=== PATIENT | female | born 1990 | race Caucasian/White ===

== ENCOUNTER 2023-03-30 22:45 | Inpatient (IN) ==
[2023-03-30] MEDS ORDERED: LABETALOL HCL IV 5 MG/ML 20ML IV STA (23:58)
[2023-03-30] MEDS ORDERED: MAG SULFATE 4GM BOLUS FROM BAG IV ONE (23:58)
[2023-03-30] MEDS ORDERED: LIDOCAINE 1% LOCAL 20 ML VIAL INFIL PRN (23:58)
[2023-03-30] MEDS ORDERED: OXYTOCIN 30 UNITS/NSS 30 UNITS/500 ML BAG IV PRN (23:58)
[2023-03-31 00:02] LABS: Hematocrit (blood only) 33.5 % (37.0-47.0); Mean Corpuscular Hemoglobin 24.1 pg (25.0-34.0); Mean Corpuscular Hgb Conc 32.8 g/dL (32.0-36.0); Mean Corpuscular Volume 73.3 fL (80.0-100.0); Mean Platelet Volume 10.3 fL (9.4-12.4); Platelet Count 246 K/uL (130-400); RDW Coefficient of Variation 14.5 % (11.5-14.5); RDW Standard Deviation 38.3 fL (36.4-46.3); Red Blood Count 4.57 M/uL (4.20-5.40); White Blood Count 8.91 K/ul (4.8-10.8)
[2023-03-31 00:17] LABS: Albumin Level 3.1 gm/dl (3.4-5.0); BUN Creatinine Ratio 9.5 (10-20); Bilirubin,Total 0.2 mg/dl (0.2-1.0); Calcium 8.8 mg/dl (8.6-10.3); Creatinine Clr Calc Pharmacy 154.3 ml/min; Est GFR (African American) 138.5 ml/min; Est GFR (Non-African American) 119.5 ml/min; Globulin 3.2 gm/dl (2.5-4.0); Potassium 3.8 mmol/L (3.5-5.1); Total Protein 6.3 gm/dl (6.0-8.3)
[2023-03-31] MEDS: MAGNESIUM SULFATE / WTR 40 GM/1,000 ML BAG IV SCH ×2 (00:24→16:58)
[2023-03-31] MEDS: LACTATED RINGER'S 1,000 ML IV PRN ×3 (00:25→23:54)
--- NOTE | 2023-03-31 00:32 | History & Physical Report ---
Date of Service March 31, 2023 Assessment & Plan (1) Pre-eclampsia, severe: (2) Obesity affecting : (3) Hypothyroidism affecting : (4) Need for rhogam due to Rh negative mother: Plan 32 yo G1 at 37 2/7 [facility] admitted w/ new dx of pre-eclampsia w/ SF by BPs Severe range BPs - will give IV labetalol 20 Fetus cat 1 PET w/ SF - Labs wnl, UPC P. Will start mag for seizure ppx Labor - limited tolerance of exam. 35cc alvarez placed with speculum, pt tolerated well. Will start pit GBS neg Epidural prn Admission and Anticipated Discharge Date Admission Date: March 30, 2023 History of Present Illness Chief Complaint: Elevated BPs Primary Care Provider: Digna Nunez, DO 32 yo G1 at 37 2/7 [facility] presents w/ c/o of elevated BP. Dx w/ covid, s/s started on 03/24. Hd visit on 03/27 where Bp was normal. Since then covid s/s have improved. Today, noticed increase in swelling and took BP on her father in laws bp cuff and it was in the 160s so she called and was recommended for eval. +FM; denies ctx, LOF, VB. Denies KESSLER, vision change, CP, SOB, RUQ/epigastric pain. PNI: PCOS BMI >35 Hypothyroid alpha thal carrier Rh neg Past [employer] Hx: G1 pcos denies hx stis Allergies Allergy/AdvReac Type Severity Reaction Status Date / Time No Known Allergies Allergy Verified 03/27/23 16:08 Home Medications Medication Instructions Recorded Confirmed Type docosahexaenoic acid 200 mg 1 mg PO DAILY 01/31/22 03/30/23 History capsule ( DHA) loratadine 10 mg tablet (Claritin) 10 mg PO DAILY 01/31/22 03/30/23 History omeprazole 20 mg capsule,delayed 20 mg PO DAILY 01/31/22 03/30/23 History release levothyroxine 50 mcg tablet 50 mcg PO DAILY #120 tabs 01/10/23 03/30/23 Rx Patient History Medical History (Updated 03/31/23 @ 00:30 by Bethany Chin MD) Hypothyroidism affecting Hypothyroidism affecting in first trimester Abnormal thyroid blood test ASCUS with positive high risk HPV cervical Eczema Chicken pox Surgical History S/P tonsillectomy S/P cholecystectomy Family History Aunt Breast cancer Grandfather (Paternal) Colorectal cancer Father Diabetes Sister Gestational diabetes Other Hypercholesteremia Hypertension Kidney stone Ovarian cyst PCOS (polycystic ovarian syndrome) Thyroid disease Denies family history of Ovarian cancer Social History Smoking Status: Never smoker Do You Dip or Chew Tobacco: No; Hx Alcohol Use: No Hx Substance Use: No Preferred Language: Arabic marital status: marital status details: John Holder (33) [phone] Current Living Situation: Spouse Current Living Situation Comment: lives with spouse, 2 dogs current occupational status: 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 Physical Exam Genitourinary: OB Exam Abdomen: + vertex (confirmed by bsus) Manual OB Exam: + cervical dilation fingertip, + cervical effacement 50% and + station -2 OB Exam Monitor Tracing: + external FHT monitor used, + external uterine monitor used and + category I Results & Data Vital Signs (Past 12 Hours) Vital Signs Temp Pulse Resp BP 03/31/23 00:23 96 H 171/87 H 03/31/23 00:14 96 H 171/87 H 03/30/23 23:58 90 184/91 H 03/30/23 23:34 91 H 176/97 H 03/30/23 23:18 92 H 178/91 H 03/30/23 23:08 99.0 F 18 Laboratory Results OB Labs: Blood Type B Negative 09/06/22 Antibody Screen NEGATIVE 01/25/23 Hemoglobin 11.0 g/dl (12.0-16.0) L 01/25/23 Hematocrit 33.9 % (37.0-47.0) L 01/25/23 Mean Corpuscular Volume 77.0 fL (80.0-100.0) L 09/06/22 Platelet Count 346 K/uL (130-400) 09/06/22 Rubella IgG Antibody Immune (Immune) 09/06/22 Rapid Plasma Reagin Nonreactive (Nonreactive) 09/06/22 Hepatitis B Surface Antigen. NON-REACTIVE (NON-REACTIVE) 09/06/22 Hepatitis C Antibody (EIA) NON-REACTIVE (NON-REACTIVE) 09/06/22 HIV (1&2) Ag and Ab Confirmation NON-REACTIVE (NON-REACTIVE) 09/06/22 Glucose 1 Hour 50 gm Load 166 mg/dl (70-130) H 01/25/23 OB Optional Labs: Chlamydia trachomatis RNA Not Detected (NotDetected) 09/06/22 Neisseria gonorrhoeae RNA Not Detected (NotDetected) 09/06/22 Thyroid Stimulating Hormone (TSH) 2.254 uIu/ml (0.300-4.500) 03/13/23 Labs Reviewed: Horizon 14-silent carrier alpha thalassemia; declines fob testing--mln cfdna-low risk--mln GBS neg Diagnostic Findings 02/26 EEFW 55%, ant plac Coding Level of Care Code None Diagnoses Pre-eclampsia, severe O14.10 Obesity affecting O99.210 Hypothyroidism affecting in third trimester O99.283; E03.9 Trimester: third trimester Need for rhogam due to Rh negative mother Z29.13 (3) Hypothyroidism affecting Trimester: third trimester Qualified Code(s): O99.283 - Endocrine, nutritional and metabolic diseases complicating , third trimester; E03.9 - Hypothyroidism, unspecified
[2023-03-31] MEDS ORDERED: OXYTOCIN 30 UNITS/NSS 30 UNITS/500 ML BAG IV PRN (00:57)
[2023-03-31 01:54] LABS: Creatinine Urine Random 140.3 mg/dl; Protein Creatinine Ratio Urine 1.5 (0-0.2)
[2023-03-31] MEDS ORDERED: LABETALOL HCL IV 5 MG/ML 20ML IV STA ×2 (02:33→08:07)
[2023-03-31] MEDS: LABETALOL HCL 200 MG TAB PO SCH ×2 (09:25→21:36)
[2023-03-31] MEDS ORDERED: fentaNYL citrate PF 100 MCG/2 ML VIAL ONE (11:34)
[2023-03-31] MEDS ORDERED: fentANYL 2 MCG/ML BUPIVacaine 0.125%-NSS 100ML BAG ONE (11:34)
[2023-03-31] MEDS ORDERED: BUPIVACAINE 0.25% PF 30 ML VIAL ONE (11:34)
[2023-03-31] MEDS ORDERED: ePHEDrine sulfate 50 MG/ML AMP ONE (11:34)
[2023-03-31] MEDS ORDERED: LIDOCAINE 2%/EPINEPHRINE 1:200,000 20 ML PF ONE (11:34)
[2023-03-31] MEDS ORDERED: SODIUM CHLORIDE 0.9% PF INJ 10 ML VIAL ONE (11:34)
[2023-03-31] MEDS ORDERED: ePHEDrine sulfate 50 MG/ML AMP IV PRN ×2 (13:39→13:40)
[2023-03-31] MEDS ORDERED: fentaNYL citrate PF 100 MCG/2 ML VIAL IV PRN (13:39)
[2023-03-31] MEDS ORDERED: PROMETHAZINE HCL 6.25 MG in SODIUM CHLORIDE 0.9% 50 ML IV PRN (13:39)
[2023-03-31] MEDS ORDERED: ONDANSETRON INJ 2 MG/ML 2 ML VIAL IV PRN ×2 (13:39→13:40)
[2023-03-31] MEDS ORDERED: ATROPINE SULFATE 0.1 MG/ML 10ML SYR IV PRN (13:39)
[2023-03-31] MEDS ORDERED: BUPIVACAINE 0.25% PF 30 ML VIAL EPI STA (13:40)
[2023-03-31] MEDS ORDERED: SODIUM CHLORIDE 0.9% PF INJ 10 ML VIAL EPI STA (13:40)
[2023-03-31] MEDS ORDERED: NALOXONE HCL 1 MG in SODIUM CHLORIDE 0.9% 1,000 ML IV PRN (13:40)
[2023-03-31] MEDS ORDERED: NALBUPHINE HCL 5 MG in SYRINGE 0 ML IV PRN (13:40)
[2023-03-31] MEDS ORDERED: diphenhydrAMINE 50 MG/ML VIAL IV PRN (13:40)
[2023-03-31] MEDS ORDERED: fentaNYL citrate PF 100 MCG/2 ML VIAL EPI PRN (13:40)
[2023-03-31] MEDS ORDERED: ROPIVACAINE 0.5% PF 5 MG/ML 20 ML VIAL EPI PRN (13:40)
[2023-03-31] MEDS ORDERED: fentaNYL citrate PF 100 MCG/2 ML VIAL EPI STA (13:40)
[2023-03-31] MEDS ORDERED: SODIUM CHLORIDE 0.9% PF INJ 10 ML VIAL EPI PRN (13:40)
[2023-03-31] MEDS ORDERED: LIDOCAINE 2% MPF LOCAL 5 ML VIAL EPI PRN (13:40)
[2023-03-31] MEDS ORDERED: LIDOCAINE 2%/EPINEPHRINE 1:200,000 20 ML PF EPI STA (13:40)
[2023-03-31] MEDS ORDERED: BUPIVACAINE 0.25% PF 30 ML VIAL EPI PRN (13:40)
[2023-03-31] MEDS ORDERED: NALOXONE HCL 0.4 MG/1 ML VIAL/CARP IV PRN (13:40)
--- NOTE | 2023-03-31 13:40 | Anesthesiology Consultation ---
Date of Service March 31, 2023 Assessment & Plan Chart Review Chart Review: Patient NOT seen in Pre Admission Testing and Acceptable Risk for Labor Epidural Consults Requested none ASA ASA2 Proposed Anesthesia Anesthesia Type: Labor Epidural Risk / Benefits Reviewed With: PT / POA / Parent / Guardian, Accepts Plan and Informed Consent Obtained History Height/Weight Height: 5 ft 5 in Weight: 103.419 kg Allergies Allergy/AdvReac Type Severity Reaction Status Date / Time No Known Allergies Allergy Verified 03/27/23 16:08 Medications Home Medications Medication Instructions Recorded Confirmed Last Taken docosahexaenoic acid 200 mg 1 mg PO DAILY 01/31/22 03/30/23 03/30/23 capsule ( DHA) loratadine 10 mg tablet (Claritin) 10 mg PO DAILY 01/31/22 03/30/23 03/30/23 omeprazole 20 mg capsule,delayed 20 mg PO DAILY 01/31/22 03/30/23 03/30/23 release levothyroxine 50 mcg tablet 50 mcg PO DAILY #120 tabs 01/10/23 03/30/23 03/30/23 Active Medications Generic Name Dose Route Start Last Admin Trade Name Freq PRN Reason Stop Dose Admin Lactated Ringer's 1,000 mls @ 125 mls/hr 03/30/23 23:58 03/31/23 11:28 Lr IV 04/01/23 23:57 75 mls/hr .Q8H PRN Administration L&D Protocol Protocol Magnesium Sulfate 40 gm in 1,000 mls @ 50 mls/hr 03/30/23 23:45 03/31/23 07:03 Magnesium Sulfate / Wtr IV 04/29/23 23:44 2 gm/hr .Q20H EDWIN 50 mls/hr Infusion 2 GM/HR Oxytocin 30 units in 500 mls @ 14 mls/hr 03/31/23 00:57 03/31/23 07:03 Pitocin 30 Units/Nss IV 04/02/23 00:56 0.84 units/hr .Q24H PRN 14 mls/hr Labor Induction/Augmentation Titration Protocol 0.84 UNITS/HR Labetalol HCl 200 mg 03/31/23 09:00 03/31/23 09:25 Labetalol Hcl 200 Mg Tab PO 04/30/23 08:59 200 mg BID EDWIN Administration Past Medical History Medical History (Updated 03/31/23 @ 00:30 by Bethany Chin MD) Hypothyroidism affecting Hypothyroidism affecting in first trimester Abnormal thyroid blood test ASCUS with positive high risk HPV cervical Eczema Chicken pox Exercise / Class Metabolic Activity II 4-5 Yardwork/Stairs/Walk up hill Past Family History Family History Aunt Breast cancer Grandfather (Paternal) Colorectal cancer Father Diabetes Sister Gestational diabetes Other Hypercholesteremia Hypertension Kidney stone Ovarian cyst PCOS (polycystic ovarian syndrome) Thyroid disease Denies family history of Ovarian cancer Past Surgical History Surgical History S/P tonsillectomy S/P cholecystectomy Past Anesthesia History No Hx of Anesthesia Complications and No Family Hx of Anesthesia Complications History of PONV No Hx of PONV and No Hx of Motion Sickness Social History Smoking Status: Never smoker Do You Dip or Chew Tobacco: No Hx Alcohol Use: No Hx Substance Use: No Physical Exam Vital Signs Last Vital Signs Temp 36.8 C 03/31/23 12:25 Pulse 84 03/31/23 13:34 Resp 18 03/31/23 13:30 BP 113/56 L 03/31/23 13:31 Pulse Ox 96 03/31/23 13:34 ENMT Mouth: no dentition abnormality Thyromental Distance: > or= 3.5 Finger Breadths Mallampati Class: II Neck normal visual inspection Respiratory normal respiratory effort Auscultation: lungs clear to auscultation bilaterally Cardiovascular Rate/Rhythm: regular rate and regular rhythm Psychiatric Orientation: alert Testing Laboratory Results 03/30/23 23:44 03/30/23 23:44 Blood Type B Negative 03/30/23 23:39 Antibody Screen NEGATIVE 03/30/23 23:39
--- NOTE | 2023-03-31 14:32 | Labor Progress Brief Note ---
Date of Service March 31, 2023 Subjective comfortable w/ epidural Assessment & Plan (1) Pre-eclampsia, severe: (2) Obesity affecting : (3) Hypothyroidism affecting : Trimester: third trimester Qualified Code(s): O99.283 - Endocrine, nutritional and metabolic diseases complicating , third trimester; E03.9 - Hypothyroidism, unspecified (4) Need for rhogam due to Rh negative mother: Plan 32 yo G1 at 37 2/7 [facility] admitted w/ new dx of pre-eclampsia w/ SF by BPs Severe range BPs - will give IV labetalol 20 Fetus cat 1 PET w/ SF - Labs wnl, UPC 1.5. on mag, alvarez in place. received iv labetalol and started onoral lab 200 bid. bp improved w/ epidural, willl monitor Labor - alvarez fell out earlier, received epidurall so could tolerate exam better and now s/p arom. cont induction GBS neg Epidural in place Admission and Anticipated Discharge Date Admission Date: March 30, 2023 Physical Exam Genitourinary: Manual OB Exam: + cervical dilation 4 cm, + cervical effacement 50%, + station -2 and + amniotic fluid (arom clear) OB Exam Monitor Tracing: + external FHT monitor used, + external uterine monitor used (q4-5) and + category I (120/mod/+accel/-decel) Results & Data Vital Signs (Past 12 Hours) Vital Signs Temp Pulse Resp BP Pulse Ox 03/31/23 14:24 96 03/31/23 14:24 92 H 03/31/23 14:19 97 03/31/23 14:19 87 03/31/23 14:15 92 03/31/23 14:15 95 H 03/31/23 14:14 98 03/31/23 14:14 87 03/31/23 14:09 98 03/31/23 14:09 92 H 03/31/23 14:04 97 03/31/23 14:04 89 03/31/23 14:02 88 03/31/23 14:02 125/59 L 03/31/23 13:59 96 03/31/23 13:59 87 03/31/23 13:55 94 03/31/23 13:55 83 03/31/23 13:54 98 03/31/23 13:54 85 03/31/23 13:49 97 03/31/23 13:49 84 03/31/23 13:48 85 03/31/23 13:48 122/61 03/31/23 13:46 94 03/31/23 13:46 88 03/31/23 13:44 96 03/31/23 13:44 85 03/31/23 13:40 94 03/31/23 13:40 88 03/31/23 13:39 94 03/31/23 13:39 85 03/31/23 13:34 96 03/31/23 13:34 84 03/31/23 13:31 80 03/31/23 13:31 113/56 L 03/31/23 13:30 18 03/31/23 13:30 18 03/31/23 13:29 98 03/31/23 13:29 85 03/31/23 13:24 97 03/31/23 13:24 82 03/31/23 13:19 99 03/31/23 13:19 85 03/31/23 13:17 93 03/31/23 13:17 94 H 03/31/23 13:16 84 03/31/23 13:16 112/57 L 03/31/23 13:14 98 03/31/23 13:14 92 H 03/31/23 13:14 109/59 L 03/31/23 13:12 85 03/31/23 13:12 118/60 03/31/23 13:10 86 03/31/23 13:10 110/55 L 03/31/23 13:09 95 03/31/23 13:09 87 03/31/23 13:08 94 03/31/23 13:08 91 H 03/31/23 13:08 113/57 L 03/31/23 13:06 86 03/31/23 13:06 109/57 L 03/31/23 13:04 96 03/31/23 13:04 87 03/31/23 13:04 102/55 L 03/31/23 13:03 93 03/31/23 13:03 85 03/31/23 13:02 87 03/31/23 13:02 96/53 L 03/31/23 13:00 16 03/31/23 13:00 16 03/31/23 13:00 86 03/31/23 13:00 109/58 L 03/31/23 12:59 96 03/31/23 12:59 85 03/31/23 12:59 85 03/31/23 12:59 115/58 L 03/31/23 12:54 94 03/31/23 12:54 84 03/31/23 12:49 98 03/31/23 12:49 86 03/31/23 12:44 98 03/31/23 12:44 86 03/31/23 12:39 99 03/31/23 12:39 97 H 03/31/23 12:34 99 03/31/23 12:34 95 H 03/31/23 12:29 16 03/31/23 12:29 16 03/31/23 12:29 97 03/31/23 12:29 96 H 03/31/23 12:29 98 H 03/31/23 12:29 145/73 H 03/31/23 12:27 91 H 03/31/23 12:27 145/76 H 03/31/23 12:25 16 03/31/23 12:25 16 03/31/23 12:25 16 03/31/23 12:25 98.2 F 16 03/31/23 12:24 98 03/31/23 12:24 97 H 03/31/23 12:19 97 03/31/23 12:19 95 H 03/31/23 12:17 94 03/31/23 12:17 100 H 03/31/23 12:17 145/71 H 03/31/23 12:14 100 03/31/23 12:14 99 H 03/31/23 12:09 97 03/31/23 12:09 105 H 03/31/23 12:04 97 03/31/23 12:04 97 H 03/31/23 12:02 94 H 03/31/23 12:02 142/78 H 03/31/23 11:59 97 03/31/23 11:59 97 H 03/31/23 11:54 96 03/31/23 11:54 96 H 03/31/23 11:49 97 03/31/23 11:49 93 H 03/31/23 11:48 98 H 03/31/23 11:48 142/84 H 03/31/23 11:44 97 03/31/23 11:44 99 H 03/31/23 11:39 96 03/31/23 11:39 96 H 03/31/23 11:34 98 03/31/23 11:34 92 H 03/31/23 11:32 93 H 03/31/23 11:32 152/81 H 03/31/23 11:29 98 03/31/23 11:29 95 H 03/31/23 11:24 97 03/31/23 11:24 97 H 03/31/23 11:19 98 03/31/23 11:19 97 H 03/31/23 11:18 99 H 03/31/23 11:18 166/87 H 03/31/23 11:14 98 03/31/23 11:14 95 H 03/31/23 11:09 98 03/31/23 11:09 100 H 03/31/23 11:04 97 03/31/23 11:04 102 H 03/31/23 11:00 16 03/31/23 10:59 97 03/31/23 10:59 95 H 03/31/23 10:54 98 03/31/23 10:54 96 H 03/31/23 10:49 98 03/31/23 10:49 94 H 03/31/23 10:48 93 H 03/31/23 10:48 146/80 H 03/31/23 10:44 96 03/31/23 10:44 98 H 03/31/23 10:43 92 03/31/23 10:43 93 H 03/31/23 10:39 96 03/31/23 10:39 93 H 03/31/23 10:36 94 03/31/23 10:36 95 H 03/31/23 10:34 97 03/31/23 10:34 91 H 03/31/23 10:33 91 H 03/31/23 10:33 148/78 H 03/31/23 10:30 94 03/31/23 10:30 94 H 03/31/23 10:29 96 03/31/23 10:29 87 03/31/23 10:24 96 03/31/23 10:24 95 H 03/31/23 10:20 93 03/31/23 10:20 100 H 03/31/23 10:19 96 03/31/23 10:19 93 H 03/31/23 10:19 93 H 03/31/23 10:19 145/83 H 03/31/23 10:14 97 03/31/23 10:14 94 H 03/31/23 10:09 98 03/31/23 10:09 95 H 03/31/23 10:05 92 H 03/31/23 10:05 168/85 H 03/31/23 09:48 86 03/31/23 09:48 161/86 H 03/31/23 09:33 92 H 03/31/23 09:33 156/82 H 03/31/23 09:18 91 H 03/31/23 09:18 145/80 H 03/31/23 09:00 16 03/31/23 08:48 90 03/31/23 08:48 137/76 03/31/23 08:33 91 H 03/31/23 08:33 136/76 03/31/23 08:15 95 H 03/31/23 08:15 177/105 H 03/31/23 08:12 88 167/85 H 03/31/23 07:59 88 03/31/23 07:59 167/85 H 03/31/23 07:45 97 H 03/31/23 07:45 160/84 H 03/31/23 07:29 92 H 03/31/23 07:29 154/87 H 03/31/23 07:14 92 H 03/31/23 07:14 158/95 H 03/31/23 07:00 97.5 F L 16 03/31/23 07:00 16 03/31/23 06:59 97 H 03/31/23 06:59 142/92 H 03/31/23 06:44 92 H 03/31/23 06:44 150/72 H 03/31/23 06:32 99 H 03/31/23 06:32 158/79 H 03/31/23 06:15 93 H 03/31/23 06:15 157/85 H 03/31/23 06:00 18 03/31/23 06:00 90 03/31/23 06:00 153/83 H 03/31/23 05:44 91 H 03/31/23 05:44 152/82 H 03/31/23 05:30 18 03/31/23 05:30 93 H 03/31/23 05:30 146/86 H 03/31/23 05:14 96 H 03/31/23 05:14 143/75 H 03/31/23 04:59 90 03/31/23 04:59 150/78 H 03/31/23 04:45 97 H 03/31/23 04:45 159/87 H 03/31/23 04:30 18 03/31/23 04:29 88 03/31/23 04:29 154/83 H 03/31/23 04:15 88 03/31/23 04:15 157/80 H 03/31/23 04:01 90 03/31/23 04:01 164/81 H 03/31/23 03:44 96 H 03/31/23 03:44 161/88 H 03/31/23 03:30 18 03/31/23 03:30 90 03/31/23 03:30 156/79 H 03/31/23 03:17 98.6 F 03/31/23 03:15 18 03/31/23 03:14 97 H 03/31/23 03:14 154/78 H 03/31/23 03:00 18 03/31/23 02:59 90 03/31/23 02:59 156/78 H 03/31/23 02:44 94 H 03/31/23 02:44 159/82 H 03/31/23 02:36 93 H 03/31/23 02:36 160/78 H 03/31/23 02:31 96 H 03/31/23 02:31 167/79 H Coding Level of Care Code None Diagnoses Pre-eclampsia, severe O14.10 Obesity affecting O99.210 Hypothyroidism affecting in third trimester O99.283; E03.9 Trimester: third trimester Need for rhogam due to Rh negative mother Z29.13
[2023-03-31] MEDS: ACETAMINOPHEN 500 MG TAB PO PRN (16:35)
--- NOTE | 2023-03-31 18:09 | Labor Progress Brief Note ---
Date of Service March 31, 2023 Subjective comfortable w/ epidural Assessment & Plan (1) Pre-eclampsia, severe: (2) Obesity affecting : (3) Hypothyroidism affecting : Trimester: third trimester Qualified Code(s): O99.283 - Endocrine, nutritional and metabolic diseases complicating , third trimester; E03.9 - Hypothyroidism, unspecified (4) Need for rhogam due to Rh negative mother: Plan 32 yo G1 at 37 2/7 [facility] admitted w/ new dx of pre-eclampsia w/ SF by BPs BPs normal to mild range Fetus cat 1 PET w/ SF - Labs wnl, UPC 1.5. on mag, alvarez in place. received iv labetalol and started onoral lab 200 bid. bp improved w/ epidural, willl monitor Labor - pit at 24, some progress in station. Will give pit break and restart GBS neg Epidural in place Admission and Anticipated Discharge Date Admission Date: March 30, 2023 Physical Exam Genitourinary: Manual OB Exam: + cervical dilation 4 cm, + cervical effacement 50% and + station -2 OB Exam Monitor Tracing: + external FHT monitor used, + external uterine monitor used (q4-5) and + category I (120/mod/+accel/-decel) Results & Data Vital Signs (Past 12 Hours) Vital Signs Temp Pulse Resp BP Pulse Ox 03/31/23 18:04 90 03/31/23 18:04 98 H 03/31/23 18:03 92 H 03/31/23 18:03 157/90 H 03/31/23 18:00 16 03/31/23 18:00 16 03/31/23 17:59 98 03/31/23 17:59 92 H 03/31/23 17:54 96 03/31/23 17:54 86 03/31/23 17:49 98 03/31/23 17:49 91 H 03/31/23 17:47 88 03/31/23 17:47 139/76 03/31/23 17:44 98 03/31/23 17:44 87 03/31/23 17:39 99 03/31/23 17:39 88 03/31/23 17:34 99 03/31/23 17:34 84 03/31/23 17:32 83 03/31/23 17:32 143/82 H 03/31/23 17:30 16 03/31/23 17:30 16 03/31/23 17:29 100 03/31/23 17:29 97 H 03/31/23 17:24 97 03/31/23 17:24 91 H 03/31/23 17:19 98 03/31/23 17:19 90 03/31/23 17:17 90 03/31/23 17:17 143/84 H 03/31/23 17:15 93 03/31/23 17:15 101 H 03/31/23 17:14 97 03/31/23 17:14 96 H 03/31/23 17:09 98 03/31/23 17:09 91 H 03/31/23 17:04 98 03/31/23 17:04 85 03/31/23 17:01 89 03/31/23 17:01 135/65 03/31/23 17:00 18 03/31/23 17:00 18 03/31/23 16:59 97 03/31/23 16:59 94 H 03/31/23 16:54 98 03/31/23 16:54 91 H 03/31/23 16:49 96 03/31/23 16:49 89 03/31/23 16:47 87 03/31/23 16:47 127/62 03/31/23 16:44 96 03/31/23 16:44 89 03/31/23 16:39 95 03/31/23 16:39 86 03/31/23 16:34 96 03/31/23 16:34 96 H 03/31/23 16:31 89 03/31/23 16:31 124/61 03/31/23 16:30 16 03/31/23 16:30 16 03/31/23 16:29 95 03/31/23 16:29 88 03/31/23 16:28 93 03/31/23 16:28 95 H 03/31/23 16:24 96 03/31/23 16:24 87 03/31/23 16:20 97.9 F 03/31/23 16:19 97 03/31/23 16:19 86 03/31/23 16:16 86 03/31/23 16:16 129/68 03/31/23 16:14 88 L 03/31/23 16:14 101 H 03/31/23 16:14 82 L 03/31/23 16:14 99 H 03/31/23 16:09 97 03/31/23 16:09 90 03/31/23 16:04 97 03/31/23 16:04 86 03/31/23 16:02 87 03/31/23 16:02 131/69 03/31/23 16:00 16 03/31/23 16:00 16 03/31/23 15:59 96 03/31/23 15:59 84 03/31/23 15:54 96 03/31/23 15:54 95 H 03/31/23 15:49 97 03/31/23 15:49 89 03/31/23 15:48 86 03/31/23 15:48 131/68 03/31/23 15:44 96 03/31/23 15:44 91 H 03/31/23 15:39 96 03/31/23 15:39 97 H 03/31/23 15:34 96 03/31/23 15:34 87 03/31/23 15:33 93 H 03/31/23 15:33 137/75 03/31/23 15:30 16 03/31/23 15:30 16 03/31/23 15:29 96 03/31/23 15:29 92 H 03/31/23 15:24 96 03/31/23 15:24 98 H 03/31/23 15:19 96 03/31/23 15:19 91 H 03/31/23 15:17 92 H 03/31/23 15:17 133/69 03/31/23 15:14 96 03/31/23 15:14 93 H 03/31/23 15:12 94 03/31/23 15:12 87 03/31/23 15:09 95 03/31/23 15:09 92 H 03/31/23 15:04 95 03/31/23 15:04 85 03/31/23 15:00 16 03/31/23 15:00 16 03/31/23 15:00 94 03/31/23 15:00 86 03/31/23 14:59 96 03/31/23 14:59 91 H 03/31/23 14:54 95 03/31/23 14:54 89 03/31/23 14:49 96 03/31/23 14:49 91 H 03/31/23 14:44 97 03/31/23 14:44 90 03/31/23 14:39 96 03/31/23 14:39 91 H 03/31/23 14:34 96 03/31/23 14:34 94 H 03/31/23 14:30 16 03/31/23 14:30 16 03/31/23 14:29 97 03/31/23 14:29 92 H 03/31/23 14:24 96 03/31/23 14:24 92 H 03/31/23 14:21 97.9 F 03/31/23 14:19 97 03/31/23 14:19 87 03/31/23 14:15 92 03/31/23 14:15 95 H 03/31/23 14:14 98 03/31/23 14:14 87 03/31/23 14:09 98 03/31/23 14:09 92 H 03/31/23 14:04 97 03/31/23 14:04 89 03/31/23 14:02 88 03/31/23 14:02 125/59 L 03/31/23 13:59 96 03/31/23 13:59 87 03/31/23 13:55 94 03/31/23 13:55 83 03/31/23 13:54 98 03/31/23 13:54 85 03/31/23 13:49 97 03/31/23 13:49 84 03/31/23 13:48 85 03/31/23 13:48 122/61 03/31/23 13:46 94 03/31/23 13:46 88 03/31/23 13:44 96 03/31/23 13:44 85 03/31/23 13:40 94 03/31/23 13:40 88 03/31/23 13:39 94 03/31/23 13:39 85 03/31/23 13:34 96 03/31/23 13:34 84 03/31/23 13:31 80 03/31/23 13:31 113/56 L 03/31/23 13:30 18 03/31/23 13:30 18 03/31/23 13:29 98 03/31/23 13:29 85 03/31/23 13:24 97 03/31/23 13:24 82 03/31/23 13:19 99 03/31/23 13:19 85 03/31/23 13:17 93 03/31/23 13:17 94 H 03/31/23 13:16 84 03/31/23 13:16 112/57 L 03/31/23 13:14 98 03/31/23 13:14 92 H 03/31/23 13:14 109/59 L 03/31/23 13:12 85 03/31/23 13:12 118/60 03/31/23 13:10 86 03/31/23 13:10 110/55 L 03/31/23 13:09 95 03/31/23 13:09 87 03/31/23 13:08 94 03/31/23 13:08 91 H 03/31/23 13:08 113/57 L 03/31/23 13:06 86 03/31/23 13:06 109/57 L 03/31/23 13:04 96 03/31/23 13:04 87 03/31/23 13:04 102/55 L 03/31/23 13:03 93 03/31/23 13:03 85 03/31/23 13:02 87 03/31/23 13:02 96/53 L 03/31/23 13:00 16 03/31/23 13:00 16 03/31/23 13:00 86 03/31/23 13:00 109/58 L 03/31/23 12:59 96 03/31/23 12:59 85 03/31/23 12:59 85 03/31/23 12:59 115/58 L 03/31/23 12:54 94 03/31/23 12:54 84 03/31/23 12:49 98 03/31/23 12:49 86 03/31/23 12:44 98 03/31/23 12:44 86 03/31/23 12:39 99 03/31/23 12:39 97 H 03/31/23 12:34 99 03/31/23 12:34 95 H 03/31/23 12:29 16 03/31/23 12:29 16 03/31/23 12:29 97 03/31/23 12:29 96 H 03/31/23 12:29 98 H 03/31/23 12:29 145/73 H 03/31/23 12:27 91 H 03/31/23 12:27 145/76 H 03/31/23 12:25 16 03/31/23 12:25 16 03/31/23 12:25 16 03/31/23 12:25 98.2 F 16 03/31/23 12:24 98 03/31/23 12:24 97 H 03/31/23 12:19 97 03/31/23 12:19 95 H 03/31/23 12:17 94 03/31/23 12:17 100 H 03/31/23 12:17 145/71 H 03/31/23 12:14 100 03/31/23 12:14 99 H 03/31/23 12:09 97 03/31/23 12:09 105 H 03/31/23 12:04 97 03/31/23 12:04 97 H 03/31/23 12:02 94 H 03/31/23 12:02 142/78 H 03/31/23 11:59 97 03/31/23 11:59 97 H 03/31/23 11:54 96 03/31/23 11:54 96 H 03/31/23 11:49 97 03/31/23 11:49 93 H 03/31/23 11:48 98 H 03/31/23 11:48 142/84 H 03/31/23 11:44 97 03/31/23 11:44 99 H 03/31/23 11:39 96 03/31/23 11:39 96 H 03/31/23 11:34 98 03/31/23 11:34 92 H 03/31/23 11:32 93 H 03/31/23 11:32 152/81 H 03/31/23 11:29 98 03/31/23 11:29 95 H 03/31/23 11:24 97 03/31/23 11:24 97 H 03/31/23 11:19 98 03/31/23 11:19 97 H 03/31/23 11:18 99 H 03/31/23 11:18 166/87 H 03/31/23 11:14 98 03/31/23 11:14 95 H 03/31/23 11:09 98 03/31/23 11:09 100 H 03/31/23 11:04 97 03/31/23 11:04 102 H 03/31/23 11:00 16 03/31/23 10:59 97 03/31/23 10:59 95 H 03/31/23 10:54 98 03/31/23 10:54 96 H 03/31/23 10:49 98 03/31/23 10:49 94 H 03/31/23 10:48 93 H 03/31/23 10:48 146/80 H 03/31/23 10:44 96 03/31/23 10:44 98 H 03/31/23 10:43 92 03/31/23 10:43 93 H 03/31/23 10:39 96 03/31/23 10:39 93 H 03/31/23 10:36 94 03/31/23 10:36 95 H 03/31/23 10:34 97 03/31/23 10:34 91 H 03/31/23 10:33 91 H 03/31/23 10:33 148/78 H 03/31/23 10:30 94 03/31/23 10:30 94 H 03/31/23 10:29 96 03/31/23 10:29 87 03/31/23 10:24 96 03/31/23 10:24 95 H 03/31/23 10:20 93 03/31/23 10:20 100 H 03/31/23 10:19 96 03/31/23 10:19 93 H 03/31/23 10:19 93 H 03/31/23 10:19 145/83 H 03/31/23 10:14 97 03/31/23 10:14 94 H 03/31/23 10:09 98 03/31/23 10:09 95 H 03/31/23 10:05 92 H 03/31/23 10:05 168/85 H 03/31/23 09:48 86 03/31/23 09:48 161/86 H 03/31/23 09:33 92 H 03/31/23 09:33 156/82 H 03/31/23 09:18 91 H 03/31/23 09:18 145/80 H 03/31/23 09:00 16 03/31/23 08:48 90 03/31/23 08:48 137/76 03/31/23 08:33 91 H 03/31/23 08:33 136/76 03/31/23 08:15 95 H 03/31/23 08:15 177/105 H 03/31/23 08:12 88 167/85 H 03/31/23 07:59 88 03/31/23 07:59 167/85 H 03/31/23 07:45 97 H 03/31/23 07:45 160/84 H 03/31/23 07:29 92 H 03/31/23 07:29 154/87 H 03/31/23 07:14 92 H 03/31/23 07:14 158/95 H 03/31/23 07:00 97.5 F L 16 03/31/23 07:00 16 03/31/23 06:59 97 H 03/31/23 06:59 142/92 H 03/31/23 06:44 92 H 03/31/23 06:44 150/72 H 03/31/23 06:32 99 H 03/31/23 06:32 158/79 H 03/31/23 06:15 93 H 03/31/23 06:15 157/85 H Coding Level of Care Code None Diagnoses Pre-eclampsia, severe O14.10 Obesity affecting O99.210 Hypothyroidism affecting in third trimester O99.283; E03.9 Trimester: third trimester Need for rhogam due to Rh negative mother Z29.13
[2023-03-31] MEDS ORDERED: METOCLOPRAMIDE HCL INJ 5 MG/ML 2 ML VIAL IV STA (19:38)
[2023-03-31] MEDS: fentANYL 2 MCG/ML BUPIVacaine 0.125%-NSS 100ML BAG EPI PRN (20:00)
--- NOTE | 2023-04-01 00:01 | Labor Progress Brief Note ---
Date of Service March 31, 2023 Subjective comfortable w/ epidural, getting tired Assessment & Plan (1) Pre-eclampsia, severe: (2) Obesity affecting : (3) Hypothyroidism affecting : Trimester: third trimester Qualified Code(s): O99.283 - Endocrine, nutritional and metabolic diseases complicating , third trimester; E03.9 - Hypothyroidism, unspecified (4) Need for rhogam due to Rh negative mother: Plan 32 yo G1 at 37 2/7 [facility] admitted w/ new dx of pre-eclampsia w/ SF by BPs BPs normal to mild range Fetus cat 1 PET w/ SF - Labs wnl, UPC 1.5. on mag, alvarez in place. s/p iv labetalol x 2 and started on oral lab 200 bid. Labor - pit increased to 16, IUPC placed. Pt getting physically and mentally tired by the whole process. Discussed continued induction vs CS, risks and benefits. She would like to see if IUPC helps make change at all, but if still about the same, may desire to proceed with CS at next check GBS neg Epidural in place Admission and Anticipated Discharge Date Admission Date: March 30, 2023 Physical Exam Genitourinary: Manual OB Exam: + cervical dilation 5 cm, + cervical effacement 70% and + station -2 OB Exam Monitor Tracing: + intra-uterine pressure catheter used (placed, q4) and + category I (120/mod/+accel/-decel) Results & Data Vital Signs (Past 12 Hours) Vital Signs Temp Pulse Resp BP Pulse Ox 03/31/23 23:47 93 H 03/31/23 23:47 150/83 H 03/31/23 23:32 93 H 03/31/23 23:32 135/71 03/31/23 23:17 86 03/31/23 23:17 126/64 03/31/23 23:02 87 03/31/23 23:02 127/72 03/31/23 22:47 96 H 03/31/23 22:47 133/85 03/31/23 22:40 18 03/31/23 22:40 98.2 F 18 03/31/23 22:32 98 H 03/31/23 22:32 135/69 03/31/23 22:17 98 H 03/31/23 22:17 118/57 L 03/31/23 22:02 90 03/31/23 22:02 124/58 L 03/31/23 21:47 88 03/31/23 21:47 122/59 L 03/31/23 21:32 89 03/31/23 21:32 122/57 L 03/31/23 21:18 84 03/31/23 21:18 129/64 03/31/23 21:05 18 03/31/23 21:02 90 03/31/23 21:02 127/75 03/31/23 20:52 18 03/31/23 20:52 98.4 F 18 03/31/23 20:47 87 03/31/23 20:47 141/73 H 03/31/23 20:31 95 H 03/31/23 20:31 150/76 H 03/31/23 20:17 101 H 03/31/23 20:17 146/74 H 03/31/23 20:01 86 03/31/23 20:01 141/75 H 03/31/23 19:48 90 03/31/23 19:48 140/77 03/31/23 19:32 83 03/31/23 19:32 137/69 03/31/23 19:19 97 03/31/23 19:19 96 H 03/31/23 19:17 85 03/31/23 19:17 137/73 03/31/23 19:14 98 03/31/23 19:14 89 03/31/23 19:10 18 03/31/23 19:10 97.9 F 18 03/31/23 19:09 98 03/31/23 19:09 100 H 03/31/23 19:08 84 L 03/31/23 19:08 103 H 03/31/23 19:04 96 03/31/23 19:04 98 H 03/31/23 19:01 90 03/31/23 19:01 122/60 03/31/23 18:59 95 03/31/23 18:59 97 H 03/31/23 18:54 96 03/31/23 18:54 92 H 03/31/23 18:54 93 03/31/23 18:54 96 H 03/31/23 18:49 96 03/31/23 18:49 88 03/31/23 18:47 88 03/31/23 18:47 126/63 12/31/23 18:44 96 03/31/23 18:44 97 H 03/31/23 18:39 96 03/31/23 18:39 96 H 03/31/23 18:34 96 03/31/23 18:34 90 03/31/23 18:32 90 03/31/23 18:32 124/61 03/31/23 18:30 16 03/31/23 18:30 16 03/31/23 18:29 96 03/31/23 18:29 91 H 03/31/23 18:24 96 03/31/23 18:24 91 H 03/31/23 18:20 97.9 F 03/31/23 18:19 97 03/31/23 18:19 87 03/31/23 18:17 89 03/31/23 18:17 133/67 03/31/23 18:14 98 03/31/23 18:14 95 H 03/31/23 18:09 99 03/31/23 18:09 83 03/31/23 18:04 90 03/31/23 18:04 98 H 03/31/23 18:03 92 H 03/31/23 18:03 157/90 H 03/31/23 18:00 16 03/31/23 18:00 16 03/31/23 17:59 98 03/31/23 17:59 92 H 03/31/23 17:54 96 03/31/23 17:54 86 03/31/23 17:49 98 03/31/23 17:49 91 H 03/31/23 17:47 88 03/31/23 17:47 139/76 03/31/23 17:44 98 03/31/23 17:44 87 03/31/23 17:39 99 03/31/23 17:39 88 03/31/23 17:34 99 03/31/23 17:34 84 03/31/23 17:32 83 03/31/23 17:32 143/82 H 03/31/23 17:30 16 03/31/23 17:30 16 03/31/23 17:29 100 03/31/23 17:29 97 H 03/31/23 17:24 97 03/31/23 17:24 91 H 03/31/23 17:19 98 03/31/23 17:19 90 03/31/23 17:17 90 03/31/23 17:17 143/84 H 03/31/23 17:15 93 03/31/23 17:15 101 H 03/31/23 17:14 97 03/31/23 17:14 96 H 03/31/23 17:09 98 03/31/23 17:09 91 H 03/31/23 17:04 98 03/31/23 17:04 85 03/31/23 17:01 89 03/31/23 17:01 135/65 03/31/23 17:00 16 03/31/23 17:00 18 03/31/23 17:00 18 03/31/23 16:59 97 03/31/23 16:59 94 H 03/31/23 16:54 98 03/31/23 16:54 91 H 03/31/23 16:49 96 03/31/23 16:49 89 03/31/23 16:47 87 03/31/23 16:47 127/62 03/31/23 16:44 96 03/31/23 16:44 89 03/31/23 16:39 95 03/31/23 16:39 86 03/31/23 16:34 96 03/31/23 16:34 96 H 03/31/23 16:31 89 03/31/23 16:31 124/61 03/31/23 16:30 16 03/31/23 16:30 16 03/31/23 16:29 95 03/31/23 16:29 88 03/31/23 16:28 93 03/31/23 16:28 95 H 03/31/23 16:24 96 03/31/23 16:24 87 03/31/23 16:20 97.9 F 03/31/23 16:19 97 03/31/23 16:19 86 03/31/23 16:16 86 03/31/23 16:16 129/68 03/31/23 16:14 88 L 03/31/23 16:14 101 H 03/31/23 16:14 82 L 03/31/23 16:14 99 H 03/31/23 16:09 97 03/31/23 16:09 90 03/31/23 16:04 97 03/31/23 16:04 86 03/31/23 16:02 87 03/31/23 16:02 131/69 03/31/23 16:00 16 03/31/23 16:00 16 03/31/23 15:59 96 03/31/23 15:59 84 03/31/23 15:54 96 03/31/23 15:54 95 H 03/31/23 15:49 97 03/31/23 15:49 89 03/31/23 15:48 86 03/31/23 15:48 131/68 03/31/23 15:44 96 03/31/23 15:44 91 H 03/31/23 15:39 96 03/31/23 15:39 97 H 03/31/23 15:34 96 03/31/23 15:34 87 03/31/23 15:33 93 H 03/31/23 15:33 137/75 03/31/23 15:30 16 03/31/23 15:30 16 03/31/23 15:29 96 03/31/23 15:29 92 H 03/31/23 15:24 96 03/31/23 15:24 98 H 03/31/23 15:19 96 03/31/23 15:19 91 H 03/31/23 15:17 92 H 03/31/23 15:17 133/69 03/31/23 15:14 96 03/31/23 15:14 93 H 03/31/23 15:12 94 03/31/23 15:12 87 03/31/23 15:09 95 03/31/23 15:09 92 H 03/31/23 15:04 95 03/31/23 15:04 85 03/31/23 15:00 16 03/31/23 15:00 16 03/31/23 15:00 16 03/31/23 15:00 94 03/31/23 15:00 86 03/31/23 14:59 96 03/31/23 14:59 91 H 03/31/23 14:54 95 03/31/23 14:54 89 03/31/23 14:49 96 03/31/23 14:49 91 H 03/31/23 14:44 97 03/31/23 14:44 90 03/31/23 14:39 96 03/31/23 14:39 91 H 03/31/23 14:34 96 03/31/23 14:34 94 H 03/31/23 14:30 16 03/31/23 14:30 16 03/31/23 14:29 97 03/31/23 14:29 92 H 03/31/23 14:24 96 03/31/23 14:24 92 H 03/31/23 14:21 97.9 F 03/31/23 14:19 97 03/31/23 14:19 87 03/31/23 14:15 92 03/31/23 14:15 95 H 03/31/23 14:14 98 03/31/23 14:14 87 03/31/23 14:09 98 03/31/23 14:09 92 H 03/31/23 14:04 97 03/31/23 14:04 89 03/31/23 14:02 88 03/31/23 14:02 125/59 L 03/31/23 13:59 96 03/31/23 13:59 87 03/31/23 13:55 94 03/31/23 13:55 83 03/31/23 13:54 98 03/31/23 13:54 85 03/31/23 13:49 97 03/31/23 13:49 84 03/31/23 13:48 85 03/31/23 13:48 122/61 03/31/23 13:46 94 03/31/23 13:46 88 03/31/23 13:44 96 03/31/23 13:44 85 03/31/23 13:40 94 03/31/23 13:40 88 03/31/23 13:39 94 03/31/23 13:39 85 03/31/23 13:34 96 03/31/23 13:34 84 03/31/23 13:31 80 03/31/23 13:31 113/56 L 03/31/23 13:30 18 03/31/23 13:30 18 03/31/23 13:29 98 03/31/23 13:29 85 03/31/23 13:24 97 03/31/23 13:24 82 03/31/23 13:19 99 03/31/23 13:19 85 03/31/23 13:17 93 03/31/23 13:17 94 H 03/31/23 13:16 84 03/31/23 13:16 112/57 L 03/31/23 13:14 98 03/31/23 13:14 92 H 03/31/23 13:14 109/59 L 03/31/23 13:12 85 03/31/23 13:12 118/60 03/31/23 13:10 86 03/31/23 13:10 110/55 L 03/31/23 13:09 95 03/31/23 13:09 87 03/31/23 13:08 94 03/31/23 13:08 91 H 03/31/23 13:08 113/57 L 03/31/23 13:06 86 03/31/23 13:06 109/57 L 03/31/23 13:04 96 03/31/23 13:04 87 03/31/23 13:04 102/55 L 03/31/23 13:03 93 03/31/23 13:03 85 03/31/23 13:02 87 03/31/23 13:02 96/53 L 03/31/23 13:00 16 03/31/23 13:00 16 03/31/23 13:00 16 03/31/23 13:00 86 03/31/23 13:00 109/58 L 03/31/23 12:59 96 03/31/23 12:59 85 03/31/23 12:59 85 03/31/23 12:59 115/58 L 03/31/23 12:54 94 03/31/23 12:54 84 03/31/23 12:49 98 03/31/23 12:49 86 03/31/23 12:44 98 03/31/23 12:44 86 03/31/23 12:39 99 03/31/23 12:39 97 H 03/31/23 12:34 99 03/31/23 12:34 95 H 03/31/23 12:29 16 03/31/23 12:29 16 03/31/23 12:29 97 03/31/23 12:29 96 H 03/31/23 12:29 98 H 03/31/23 12:29 145/73 H 03/31/23 12:27 91 H 03/31/23 12:27 145/76 H 03/31/23 12:25 16 03/31/23 12:25 16 03/31/23 12:25 16 03/31/23 12:25 98.2 F 16 03/31/23 12:24 98 03/31/23 12:24 97 H 03/31/23 12:19 97 03/31/23 12:19 95 H 03/31/23 12:17 94 03/31/23 12:17 100 H 03/31/23 12:17 145/71 H 03/31/23 12:14 100 03/31/23 12:14 99 H 03/31/23 12:09 97 03/31/23 12:09 105 H 03/31/23 12:04 97 03/31/23 12:04 97 H 03/31/23 12:02 94 H 03/31/23 12:02 142/78 H 03/31/23 11:59 97 03/31/23 11:59 97 H Coding Level of Care Code None Diagnoses Pre-eclampsia, severe O14.10 Obesity affecting O99.210 Hypothyroidism affecting in third trimester O99.283; E03.9 Trimester: third trimester Need for rhogam due to Rh negative mother Z29.13
[2023-04-01] MEDS: ACETAMINOPHEN 500 MG TAB PO PRN (01:28)
[2023-04-01] MEDS: fentANYL 2 MCG/ML BUPIVacaine 0.125%-NSS 100ML BAG EPI PRN (01:36)
[2023-04-01] MEDS ORDERED: SODIUM CHLORIDE 0.9% 250 ML IV PRN ×2 (04:24→11:14)
--- NOTE | 2023-04-01 04:44 | Labor Progress Brief Note ---
Date of Service April 01, 2023 Subjective comfortable w/ epidural, tired Assessment & Plan (1) Pre-eclampsia, severe: (2) Obesity affecting : (3) Hypothyroidism affecting : Trimester: third trimester Qualified Code(s): O99.283 - Endocrine, nutritional and metabolic diseases complicating , third trimester; E03.9 - Hypothyroidism, unspecified (4) Need for rhogam due to Rh negative mother: Plan 32 yo G1 at 37 2/7 [facility] admitted w/ new dx of pre-eclampsia w/ SF by BPs BPs normal to mild range Fetus cat 1 PET w/ SF - Labs wnl, UPC 1.5. on mag, alvarez in place. s/p iv labetalol x 2 and started on oral lab 200 bid. Labor - pit a 24, periods of adequacy but not much change noted. has been 12+ hrs since rom and significant change not noted. She was counseled regarding options and desires to proceed with CS. Discussed indications, risks, benefits, alternatives with risks including infection, bleeding, injury to adjacent structures (bowel, bladder, ureters, blood vessels, nerves, baby), possible need for blood transfusion and/or life saving hysterectomy, VTE. Consent reviewed in detail w/ pt and signed after all questions answered to her satisfaction. Plan for T&C, ancef and azithro. Anesthesia and peds made aware GBS neg Epidural in place Admission and Anticipated Discharge Date Admission Date: March 30, 2023 Physical Exam Genitourinary: Manual OB Exam: + cervical dilation 5 cm, + cervical effacement 70%, + station -2 and + amniotic fluid (arom clear) OB Exam Monitor Tracing: + external FHT monitor used, + intra-uterine pressure catheter used and + category I (120/mod/+accel/-decel) Results & Data Vital Signs (Past 12 Hours) Vital Signs Temp Pulse Resp BP Pulse Ox 04/01/23 04:33 106 H 186/85 H 04/01/23 04:18 111 H 131/63 04/01/23 04:02 110 H 152/81 H 04/01/23 03:56 18 04/01/23 03:56 18 04/01/23 03:56 99.7 F H 18 04/01/23 03:48 100 H 144/74 H 04/01/23 03:32 109 H 140/75 04/01/23 03:17 99 H 140/71 04/01/23 03:02 107 H 144/75 H 04/01/23 02:47 104 H 140/74 04/01/23 02:32 106 H 127/58 L 04/01/23 02:17 104 H 129/62 04/01/23 02:03 102 H 132/57 L 04/01/23 01:47 100 H 134/63 04/01/23 01:32 105 H 123/61 04/01/23 01:20 18 04/01/23 01:20 98.2 F 18 04/01/23 01:19 18 04/01/23 01:17 104 H 156/71 H 04/01/23 01:02 99 H 152/77 H 04/01/23 00:49 96 H 157/81 H 04/01/23 00:32 97 H 156/74 H 04/01/23 00:17 104 H 151/72 H 04/01/23 00:02 96 H 163/77 H 03/31/23 23:47 93 H 03/31/23 23:47 150/83 H 03/31/23 23:32 93 H 03/31/23 23:32 135/71 03/31/23 23:17 86 03/31/23 23:17 126/64 03/31/23 23:02 87 03/31/23 23:02 127/72 03/31/23 22:47 96 H 03/31/23 22:47 133/85 03/31/23 22:40 18 03/31/23 22:40 98.2 F 18 03/31/23 22:32 98 H 03/31/23 22:32 135/69 03/31/23 22:17 98 H 03/31/23 22:17 118/57 L 03/31/23 22:02 90 03/31/23 22:02 124/58 L 03/31/23 21:47 88 03/31/23 21:47 122/59 L 03/31/23 21:32 89 03/31/23 21:32 122/57 L 03/31/23 21:18 84 03/31/23 21:18 129/64 03/31/23 21:05 18 03/31/23 21:02 90 03/31/23 21:02 127/75 03/31/23 20:52 18 03/31/23 20:52 98.4 F 18 03/31/23 20:47 87 03/31/23 20:47 141/73 H 03/31/23 20:31 95 H 03/31/23 20:31 150/76 H 03/31/23 20:17 101 H 03/31/23 20:17 146/74 H 03/31/23 20:01 86 03/31/23 20:01 141/75 H 03/31/23 19:48 90 03/31/23 19:48 140/77 03/31/23 19:32 83 03/31/23 19:32 137/69 03/31/23 19:19 97 03/31/23 19:19 96 H 03/31/23 19:17 85 03/31/23 19:17 137/73 03/31/23 19:14 98 03/31/23 19:14 89 03/31/23 19:10 18 03/31/23 19:10 97.9 F 18 03/31/23 19:09 98 03/31/23 19:09 100 H 03/31/23 19:08 84 L 03/31/23 19:08 103 H 03/31/23 19:04 96 03/31/23 19:04 98 H 03/31/23 19:01 90 03/31/23 19:01 122/60 03/31/23 18:59 95 03/31/23 18:59 97 H 03/31/23 18:54 96 03/31/23 18:54 92 H 03/31/23 18:54 93 03/31/23 18:54 96 H 03/31/23 18:49 96 03/31/23 18:49 88 03/31/23 18:47 88 03/31/23 18:47 126/63 03/31/23 18:44 96 03/31/23 18:44 97 H 03/31/23 18:39 96 03/31/23 18:39 96 H 03/31/23 18:34 96 03/31/23 18:34 90 03/31/23 18:32 90 03/31/23 18:32 124/61 03/31/23 18:30 16 03/31/23 18:30 16 03/31/23 18:29 96 03/31/23 18:29 91 H 03/31/23 18:24 96 03/31/23 18:24 91 H 03/31/23 18:20 97.9 F 03/31/23 18:19 97 03/31/23 18:19 87 03/31/23 18:17 89 03/31/23 18:17 133/67 03/31/23 18:14 98 03/31/23 18:14 95 H 03/31/23 18:09 99 03/31/23 18:09 83 03/31/23 18:04 90 03/31/23 18:04 98 H 03/31/23 18:03 92 H 03/31/23 18:03 157/90 H 03/31/23 18:00 16 03/31/23 18:00 16 03/31/23 17:59 98 03/31/23 17:59 92 H 03/31/23 17:54 96 03/31/23 17:54 86 03/31/23 17:49 98 03/31/23 17:49 91 H 03/31/23 17:47 88 03/31/23 17:47 139/76 03/31/23 17:44 98 03/31/23 17:44 87 03/31/23 17:39 99 03/31/23 17:39 88 03/31/23 17:34 99 03/31/23 17:34 84 03/31/23 17:32 83 03/31/23 17:32 143/82 H 03/31/23 17:30 16 03/31/23 17:30 16 03/31/23 17:29 100 03/31/23 17:29 97 H 03/31/23 17:24 97 03/31/23 17:24 91 H 03/31/23 17:19 98 03/31/23 17:19 90 03/31/23 17:17 90 03/31/23 17:17 143/84 H 03/31/23 17:15 93 03/31/23 17:15 101 H 03/31/23 17:14 97 03/31/23 17:14 96 H 03/31/23 17:09 98 03/31/23 17:09 91 H 03/31/23 17:04 98 03/31/23 17:04 85 03/31/23 17:01 89 03/31/23 17:01 135/65 03/31/23 17:00 16 03/31/23 17:00 18 03/31/23 17:00 18 03/31/23 16:59 97 03/31/23 16:59 94 H 03/31/23 16:54 98 03/31/23 16:54 91 H 03/31/23 16:49 96 03/31/23 16:49 89 03/31/23 16:47 87 03/31/23 16:47 127/62 03/31/23 16:44 96 03/31/23 16:44 89 03/31/23 16:39 95 03/31/23 16:39 86 Coding Level of Care Code None Diagnoses Pre-eclampsia, severe O14.10 Obesity affecting O99.210 Hypothyroidism affecting in third trimester O99.283; E03.9 Trimester: third trimester Need for rhogam due to Rh negative mother Z29.13
[2023-04-01] MEDS ORDERED: MoRPHine SULFATE PF 1 MG/ML 10 ML AMP/VIAL ONE (05:02)
[2023-04-01] MEDS ORDERED: fentaNYL citrate PF 100 MCG/2 ML VIAL ONE ×2 (05:02→06:11)
[2023-04-01] MEDS ORDERED: METHYLERGONOVINE MALEATE 0.2 MG/ML AMP ONE (05:08)
[2023-04-01] MEDS ORDERED: CARBOPROST TROMETHAMINE 250 MCG/ML AMPUL ONE ×2 (05:08→07:10)
[2023-04-01] MEDS ORDERED: diphenhydrAMINE 50 MG/ML VIAL IV PRN ×3 (05:21→23:22)
[2023-04-01] MEDS ORDERED: NALOXONE HCL 1 MG in SODIUM CHLORIDE 0.9% 1,000 ML IV PRN (05:21)
[2023-04-01] MEDS ORDERED: ONDANSETRON INJ 2 MG/ML 2 ML VIAL IV PRN ×3 (05:21→23:22)
[2023-04-01] MEDS ORDERED: NALBUPHINE HCL 5 MG in SYRINGE 0 ML IV PRN (05:21)
[2023-04-01] MEDS ORDERED: NALOXONE HCL 0.4 MG/1 ML VIAL/CARP IV PRN (05:21)
[2023-04-01] MEDS ORDERED: NALOXONE HCL 0.08 MG in SYRINGE 1.8 ML IV PRN (05:21)
[2023-04-01] MEDS ORDERED: LACTATED RINGER'S 500 ML IV PRN (05:21)
[2023-04-01] MEDS ORDERED: ePHEDrine sulfate 50 MG/ML AMP IV PRN (05:21)
[2023-04-01] MEDS ORDERED: MoRPHine SULFATE PF 1 MG/ML 10 ML AMP/VIAL EPI ONE (05:21)
[2023-04-01] MEDS ORDERED: NO NARCOTICS OR SEDATIVES SCH (05:30)
[2023-04-01] MEDS ORDERED: SODIUM CHLORIDE 0.9% 1,000 ML IV SCH (05:30)
[2023-04-01] MEDS ORDERED: DC INTRASPINAL MORPHINE SCH (05:30)
[2023-04-01] MEDS ORDERED: CITRIC ACID/SODIUM CITRATE 15 ML UDC PO SCH (06:00)
[2023-04-01] MEDS ORDERED: AZITHROMYCIN 500 MG in DEXTROSE 5% 250 ML IV SCH (06:00)
--- NOTE | 2023-04-01 07:07 | Operative Report ---
PG Post Operative Report Pre & Post Diagnosis Operation Date: 04/01/23 05:30 Pre-Op Diagnosis: 1. Single intrauterine at 37 3/7 wga 2. Pre-eclampsia with severe features 3. Failed IOL 4. Hypothyroid 5. COVID+ Post-Op Diagnosis: 1. Single intrauterine at 37 3/7 wga 2. Pre-eclampsia with severe features 3. Failed IOL 4. Hypothyroid 5. COVID+ 6. Delivery of live male child at 0609 I identified the patient and participated in the time-out.: Yes Procedure Operation Date: 04/01/23 05:30 Actual Procedures p Primary Low Transverse Section in OR - Bethany Chin MD Surgeon Bethany Chin MD [employer]ist MD Brian Estimated Blood Loss 800 Findings Consistent with Post-Op Diagnosis Normal appearing uterus, bilateral fallopian tubes and ovaries. Viable male infant with APGARs of 9 and 9 Fluids 800cc crystalloid, UOP 50cc Specimens Placenta Drains Alvarez draining clear urine Anesthesia Type L&D Only Epidural Exists Complications none Disposition Accompanied Patient To Recovery: Yes Disposition: L&D Indications 32 yo G1 at 37 3/7 wga presented one day ago with complaints of elevated BP at home and swelling. On arrival, she was noted to have severe range BPs requiring anti-hypertensive medication and was diagnosed with pre-eclampsia with severe features. Labs were obtained and demonstrated a UP:C of 1.5. Induction was begun with alvarez bulb and pitocin. Following alvarez bulb expulsion, pitocin was titrated up and she underwent arom. BPs remained mild range but intermittently severe so labetalol 200mg PO BID was started. Pitocin got to 24 without much change so pit break was given. Pit was restarated and got to 24 with periods of adequacy but cervix did not progress beyond 5cm. She was counseled regarding options and opted to proceed with above procedure Description of Procedure The patient was taken to the operating room after consents were ensured. The patient was properly identified. Epidural anesthesia was bolused without difficulty. The patient was placed in a dorsal supine position with left lateral tilt, then prepped and draped in normal sterile fashion. Surgical time out was performed. Antibiotics were given for prophylaxis. Anesthesia was tested to ensure adequate surgical levels. Pfannenstiel skin incision was performed and carried down to the underlying fascia with a knife. The fascia was then nicked in the midline and extended laterally with pickclarissa and Mcgill scissors. Superior portion of the fascia was grasped with Kochers x2 and elevated off the underlying rectus muscles using blunt dissection. Inferior portion of the fascia was then grasped with Aden clamps x2 and also elevated off the underlying muscles with blunt dissection. Midline was identified. The peritoneum was then entered and extended to provide adequate room for delivery of baby. A hand was inserted into the abdomen, uterus was noted to be clear of adhesions. Bladder blade was inserted, bladder flap was created in the usual fashion. A low transverse uterine incision was made in the uterus and extended bluntly in a superior to inferior fashion. Clear fluid noted at the time of rupture. head was grasped and elevated through the hysterotomy in an atraumatic fashion. The baby delivered in VERN position, no nuchal cord. Remainder of the body delivered without incident. Nose and mouth were bulb suctioned on the surgical field. The cord was double clamped and cut, baby was handed off to awaiting pediatrics staff. Cord segment and blood were obtained. Placenta was then expressed from the uterus. The uterus was exteriorized. Several passes were made inside the uterus to remove the remaining membranes. Attention was then turned to the hysterotomy, which was then closed with a running locked suture of 0 Vicryl on a CTX needle. Mild uterine atony was noted and hemabate given. An imbricating layer was then performed using 0-Monocryl. With initial closure layer, a hematoma was noted at left aspect of the hysterotomy. With imbricating layer, hematoma was noted to decrease in size and remain stable. There was noted to be good hemostasis. The posterior cul-de-sac was then inspected and cleaned of clot and debris. The hysterotomy was again inspected and noted to be hemostatic. The uterus was returned to the abdomen. The right and left pericolic gutters were cleaned of all clot and debris. The hysterotomy was again noted to be hemostatic. Space of Retzius was noted to be hemostatic. The fascia was then closed with a running suture of 0 Vicryl on a CT1 needle. Subcutaneous tissue was copiously irrigated and noted to be hemostatic. Subcutaneous tissue was re-approximated using 2-0 plain gut. The skin was then closed with a running suture of 3-0 Monocryl in a subcuticular fashion. At termination of the procedure, fundal pressure was applied and a moderate amount of lochia was expressed. Pressure dressing was applied to the patient. She tolerated the procedure well. All sponge, needle, instrument counts were correct x 2. I attest to the content of the Intraoperative Record and any orders documented therein. Any exceptions are noted below. OB Procedure Charges 69561
[2023-04-01] MEDS ORDERED: CHLOROPROCAINE HCL 3% 20 ML VIAL ONE (07:09)
[2023-04-01] MEDS ORDERED: LIDOCAINE 2%/EPINEPHRINE 1:200,000 20 ML PF ONE (07:09)
[2023-04-01] MEDS ORDERED: OXYTOCIN 10 UNITS/ML VIAL ONE (07:09)
--- NOTE | 2023-04-01 07:22 | Anesthesia Procedure Note ---
Date of Service April 01, 2023 Anesthesia Post Epidural Note Vital Signs Vital Signs: Temp Pulse Resp BP Pulse Ox 37.6 C H 107 H 18 94/44 L 96 04/01/23 03:56 04/01/23 07:16 04/01/23 05:30 04/01/23 07:14 04/01/23 07:16 Notes Mental Status: alert / awake / arousable and participated in evaluation Nausea / Vomiting: adequately controlled Pain: adequately controlled Airway Patency, RR, SpO2: stable & adequate BP & HR: stable & adequate Hydration State: stable & adequate Neuraxial Anesthesia: was administered and sensory block resolved Anesthetic Complications: no major complications apparent and Pt Satisfied with anesthetic care Epidural: Removed without complications and With tip intact
--- NOTE | 2023-04-01 07:22 | Anesthesiology Progress Note ---
Date of Service April 01, 2023 Anesthesia Post Procedure Vital Signs Vital Signs: Temp Pulse Resp BP Pulse Ox 04/01/23 07:16 107 H 96 04/01/23 07:14 108 H 94/44 L 04/01/23 07:11 106 H 97 04/01/23 07:07 102 H 93 04/01/23 07:06 102 H 96 04/01/23 07:04 103 H 104/51 L 04/01/23 05:30 18 04/01/23 05:17 108 H 195/89 H 04/01/23 05:02 102 H 187/87 H 04/01/23 04:47 109 H 193/88 H 04/01/23 04:33 106 H 186/85 H 04/01/23 04:18 111 H 131/63 04/01/23 04:02 110 H 152/81 H 04/01/23 03:56 18 04/01/23 03:56 18 04/01/23 03:56 37.6 C H 18 04/01/23 03:48 100 H 144/74 H 04/01/23 03:32 109 H 140/75 04/01/23 03:17 99 H 140/71 04/01/23 03:02 107 H 144/75 H 04/01/23 02:47 104 H 140/74 04/01/23 02:32 106 H 127/58 L 04/01/23 02:17 104 H 129/62 04/01/23 02:03 102 H 132/57 L 04/01/23 01:47 100 H 134/63 04/01/23 01:32 105 H 123/61 04/01/23 01:20 18 04/01/23 01:20 36.8 C 18 04/01/23 01:19 18 04/01/23 01:17 104 H 156/71 H 04/01/23 01:02 99 H 152/77 H 04/01/23 00:49 96 H 157/81 H 04/01/23 00:32 97 H 156/74 H 04/01/23 00:17 104 H 151/72 H 04/01/23 00:02 96 H 163/77 H 03/31/23 23:47 93 H 03/31/23 23:47 150/83 H 03/31/23 23:32 93 H 03/31/23 23:32 135/71 03/31/23 23:17 86 03/31/23 23:17 126/64 03/31/23 23:02 87 03/31/23 23:02 127/72 03/31/23 22:47 96 H 03/31/23 22:47 133/85 03/31/23 22:40 18 03/31/23 22:40 36.8 C 18 03/31/23 22:32 98 H 03/31/23 22:32 135/69 03/31/23 22:17 98 H 03/31/23 22:17 118/57 L 03/31/23 22:02 90 03/31/23 22:02 124/58 L 03/31/23 21:47 88 03/31/23 21:47 122/59 L 03/31/23 21:32 89 03/31/23 21:32 122/57 L 03/31/23 21:18 84 03/31/23 21:18 129/64 03/31/23 21:05 18 03/31/23 21:02 90 03/31/23 21:02 127/75 03/31/23 20:52 18 03/31/23 20:52 36.9 C 18 03/31/23 20:47 87 03/31/23 20:47 141/73 H 03/31/23 20:31 95 H 03/31/23 20:31 150/76 H 03/31/23 20:17 101 H 03/31/23 20:17 146/74 H 03/31/23 20:01 86 03/31/23 20:01 141/75 H 03/31/23 19:48 90 03/31/23 19:48 140/77 03/31/23 19:32 83 03/31/23 19:32 137/69 03/31/23 19:19 97 03/31/23 19:19 96 H 03/31/23 19:17 85 03/31/23 19:17 137/73 03/31/23 19:14 98 03/31/23 19:14 89 03/31/23 19:10 18 03/31/23 19:10 36.6 C 18 03/31/23 19:09 98 03/31/23 19:09 100 H 03/31/23 19:08 84 L 03/31/23 19:08 103 H 03/31/23 19:04 96 03/31/23 19:04 98 H 03/31/23 19:01 90 03/31/23 19:01 122/60 03/31/23 18:59 95 03/31/23 18:59 97 H 03/31/23 18:54 96 03/31/23 18:54 92 H 03/31/23 18:54 93 03/31/23 18:54 96 H 03/31/23 18:49 96 03/31/23 18:49 88 03/31/23 18:47 88 03/31/23 18:47 126/63 03/31/23 18:44 96 03/31/23 18:44 97 H 03/31/23 18:39 96 03/31/23 18:39 96 H 03/31/23 18:34 96 03/31/23 18:34 90 03/31/23 18:32 90 03/31/23 18:32 124/61 03/31/23 18:30 16 03/31/23 18:30 16 03/31/23 18:29 96 03/31/23 18:29 91 H 03/31/23 18:24 96 03/31/23 18:24 91 H 03/31/23 18:20 36.6 C 03/31/23 18:19 97 03/31/23 18:19 87 03/31/23 18:17 89 03/31/23 18:17 133/67 03/31/23 18:14 98 03/31/23 18:14 95 H 03/31/23 18:09 99 03/31/23 18:09 83 03/31/23 18:04 90 03/31/23 18:04 98 H 03/31/23 18:03 92 H 03/31/23 18:03 157/90 H 03/31/23 18:00 16 03/31/23 18:00 16 03/31/23 17:59 98 03/31/23 17:59 92 H 03/31/23 17:54 96 03/31/23 17:54 86 03/31/23 17:49 98 03/31/23 17:49 91 H 03/31/23 17:47 88 03/31/23 17:47 139/76 03/31/23 17:44 98 03/31/23 17:44 87 03/31/23 17:39 99 03/31/23 17:39 88 03/31/23 17:34 99 03/31/23 17:34 84 03/31/23 17:32 83 03/31/23 17:32 143/82 H 03/31/23 17:30 16 03/31/23 17:30 16 03/31/23 17:29 100 03/31/23 17:29 97 H 03/31/23 17:24 97 03/31/23 17:24 91 H 03/31/23 17:19 98 03/31/23 17:19 90 03/31/23 17:17 90 03/31/23 17:17 143/84 H 03/31/23 17:15 93 03/31/23 17:15 101 H 03/31/23 17:14 97 03/31/23 17:14 96 H 03/31/23 17:09 98 03/31/23 17:09 91 H 03/31/23 17:04 98 03/31/23 17:04 85 03/31/23 17:01 89 03/31/23 17:01 135/65 03/31/23 17:00 16 03/31/23 17:00 18 03/31/23 17:00 18 03/31/23 16:59 97 03/31/23 16:59 94 H 03/31/23 16:54 98 03/31/23 16:54 91 H 03/31/23 16:49 96 03/31/23 16:49 89 03/31/23 16:47 87 03/31/23 16:47 127/62 03/31/23 16:44 96 03/31/23 16:44 89 03/31/23 16:39 95 03/31/23 16:39 86 03/31/23 16:34 96 03/31/23 16:34 96 H 03/31/23 16:31 89 03/31/23 16:31 124/61 03/31/23 16:30 16 03/31/23 16:30 16 03/31/23 16:29 95 03/31/23 16:29 88 03/31/23 16:28 93 03/31/23 16:28 95 H 03/31/23 16:24 96 03/31/23 16:24 87 03/31/23 16:20 36.6 C 03/31/23 16:19 97 03/31/23 16:19 86 03/31/23 16:16 86 03/31/23 16:16 129/68 03/31/23 16:14 88 L 03/31/23 16:14 101 H 03/31/23 16:14 82 L 03/31/23 16:14 99 H 03/31/23 16:09 97 03/31/23 16:09 90 03/31/23 16:04 97 03/31/23 16:04 86 03/31/23 16:02 87 03/31/23 16:02 131/69 03/31/23 16:00 16 03/31/23 16:00 16 03/31/23 15:59 96 03/31/23 15:59 84 03/31/23 15:54 96 03/31/23 15:54 95 H 03/31/23 15:49 97 03/31/23 15:49 89 03/31/23 15:48 86 03/31/23 15:48 131/68 03/31/23 15:44 96 03/31/23 15:44 91 H 03/31/23 15:39 96 03/31/23 15:39 97 H 03/31/23 15:34 96 03/31/23 15:34 87 03/31/23 15:33 93 H 03/31/23 15:33 137/75 03/31/23 15:30 16 03/31/23 15:30 16 03/31/23 15:29 96 03/31/23 15:29 92 H 03/31/23 15:24 96 03/31/23 15:24 98 H 03/31/23 15:19 96 03/31/23 15:19 91 H 03/31/23 15:17 92 H 03/31/23 15:17 133/69 03/31/23 15:14 96 03/31/23 15:14 93 H 03/31/23 15:12 94 03/31/23 15:12 87 03/31/23 15:09 95 03/31/23 15:09 92 H 03/31/23 15:04 95 03/31/23 15:04 85 03/31/23 15:00 16 03/31/23 15:00 16 03/31/23 15:00 16 03/31/23 15:00 94 03/31/23 15:00 86 03/31/23 14:59 96 03/31/23 14:59 91 H 03/31/23 14:54 95 03/31/23 14:54 89 03/31/23 14:49 96 03/31/23 14:49 91 H 03/31/23 14:44 97 03/31/23 14:44 90 03/31/23 14:39 96 03/31/23 14:39 91 H 03/31/23 14:34 96 03/31/23 14:34 94 H 03/31/23 14:30 16 03/31/23 14:30 16 03/31/23 14:29 97 03/31/23 14:29 92 H 03/31/23 14:24 96 03/31/23 14:24 92 H 03/31/23 14:21 36.6 C 03/31/23 14:19 97 03/31/23 14:19 87 03/31/23 14:15 92 03/31/23 14:15 95 H 03/31/23 14:14 98 03/31/23 14:14 87 03/31/23 14:09 98 03/31/23 14:09 92 H 03/31/23 14:04 97 03/31/23 14:04 89 03/31/23 14:02 88 03/31/23 14:02 125/59 L 03/31/23 13:59 96 03/31/23 13:59 87 03/31/23 13:55 94 03/31/23 13:55 83 03/31/23 13:54 98 03/31/23 13:54 85 03/31/23 13:49 97 03/31/23 13:49 84 03/31/23 13:48 85 03/31/23 13:48 122/61 03/31/23 13:46 94 03/31/23 13:46 88 03/31/23 13:44 96 03/31/23 13:44 85 03/31/23 13:40 94 03/31/23 13:40 88 03/31/23 13:39 94 03/31/23 13:39 85 03/31/23 13:34 96 03/31/23 13:34 84 03/31/23 13:31 80 03/31/23 13:31 113/56 L 03/31/23 13:30 18 03/31/23 13:30 18 03/31/23 13:29 98 03/31/23 13:29 85 03/31/23 13:24 97 03/31/23 13:24 82 03/31/23 13:19 99 03/31/23 13:19 85 03/31/23 13:17 93 03/31/23 13:17 94 H 03/31/23 13:16 84 03/31/23 13:16 112/57 L 03/31/23 13:14 98 03/31/23 13:14 92 H 03/31/23 13:14 109/59 L 03/31/23 13:12 85 03/31/23 13:12 118/60 03/31/23 13:10 86 03/31/23 13:10 110/55 L 03/31/23 13:09 95 03/31/23 13:09 87 03/31/23 13:08 94 03/31/23 13:08 91 H 03/31/23 13:08 113/57 L 03/31/23 13:06 86 03/31/23 13:06 109/57 L 03/31/23 13:04 96 03/31/23 13:04 87 03/31/23 13:04 102/55 L 03/31/23 13:03 93 03/31/23 13:03 85 03/31/23 13:02 87 03/31/23 13:02 96/53 L 03/31/23 13:00 16 03/31/23 13:00 16 03/31/23 13:00 16 03/31/23 13:00 86 03/31/23 13:00 109/58 L 03/31/23 12:59 96 03/31/23 12:59 85 03/31/23 12:59 85 03/31/23 12:59 115/58 L 03/31/23 12:54 94 03/31/23 12:54 84 03/31/23 12:49 98 03/31/23 12:49 86 03/31/23 12:44 98 03/31/23 12:44 86 03/31/23 12:39 99 03/31/23 12:39 97 H 03/31/23 12:34 99 03/31/23 12:34 95 H 03/31/23 12:29 16 03/31/23 12:29 16 03/31/23 12:29 97 03/31/23 12:29 96 H 03/31/23 12:29 98 H 03/31/23 12:29 145/73 H 03/31/23 12:27 91 H 03/31/23 12:27 145/76 H 03/31/23 12:25 16 03/31/23 12:25 16 03/31/23 12:25 16 03/31/23 12:25 36.8 C 16 03/31/23 12:24 98 03/31/23 12:24 97 H 03/31/23 12:19 97 03/31/23 12:19 95 H 03/31/23 12:17 94 03/31/23 12:17 100 H 03/31/23 12:17 145/71 H 03/31/23 12:14 100 03/31/23 12:14 99 H 03/31/23 12:09 97 03/31/23 12:09 105 H 03/31/23 12:04 97 03/31/23 12:04 97 H 03/31/23 12:02 94 H 03/31/23 12:02 142/78 H 03/31/23 11:59 97 03/31/23 11:59 97 H 03/31/23 11:54 96 03/31/23 11:54 96 H 03/31/23 11:49 97 03/31/23 11:49 93 H 03/31/23 11:48 98 H 03/31/23 11:48 142/84 H 03/31/23 11:44 97 03/31/23 11:44 99 H 03/31/23 11:39 96 03/31/23 11:39 96 H 03/31/23 11:34 98 03/31/23 11:34 92 H 03/31/23 11:32 93 H 03/31/23 11:32 152/81 H 03/31/23 11:29 98 03/31/23 11:29 95 H 03/31/23 11:24 97 03/31/23 11:24 97 H 03/31/23 11:19 98 03/31/23 11:19 97 H 03/31/23 11:18 99 H 03/31/23 11:18 166/87 H 03/31/23 11:14 98 03/31/23 11:14 95 H 03/31/23 11:09 98 03/31/23 11:09 100 H 03/31/23 11:04 97 03/31/23 11:04 102 H 03/31/23 11:00 16 03/31/23 10:59 97 03/31/23 10:59 95 H 03/31/23 10:54 98 03/31/23 10:54 96 H 03/31/23 10:49 98 03/31/23 10:49 94 H 03/31/23 10:48 93 H 03/31/23 10:48 146/80 H 03/31/23 10:44 96 03/31/23 10:44 98 H 03/31/23 10:43 92 03/31/23 10:43 93 H 03/31/23 10:39 96 03/31/23 10:39 93 H 03/31/23 10:36 94 03/31/23 10:36 95 H 03/31/23 10:34 97 03/31/23 10:34 91 H 03/31/23 10:33 91 H 03/31/23 10:33 148/78 H 03/31/23 10:30 94 03/31/23 10:30 94 H 03/31/23 10:29 96 03/31/23 10:29 87 03/31/23 10:24 96 03/31/23 10:24 95 H 03/31/23 10:20 93 03/31/23 10:20 100 H 03/31/23 10:19 96 03/31/23 10:19 93 H 03/31/23 10:19 93 H 03/31/23 10:19 145/83 H 03/31/23 10:14 97 03/31/23 10:14 94 H 03/31/23 10:09 98 03/31/23 10:09 95 H 03/31/23 10:05 92 H 03/31/23 10:05 168/85 H 03/31/23 09:48 86 03/31/23 09:48 161/86 H 03/31/23 09:33 92 H 03/31/23 09:33 156/82 H 03/31/23 09:18 91 H 03/31/23 09:18 145/80 H 03/31/23 09:00 16 03/31/23 08:48 90 03/31/23 08:48 137/76 03/31/23 08:33 91 H 03/31/23 08:33 136/76 03/31/23 08:15 95 H 03/31/23 08:15 177/105 H 03/31/23 08:12 88 167/85 H 03/31/23 07:59 88 03/31/23 07:59 167/85 H 03/31/23 07:45 97 H 03/31/23 07:45 160/84 H 03/31/23 07:29 92 H 03/31/23 07:29 154/87 H Transfer of Care Handoff Completed per policy Notes Mental Status: alert / awake / arousable and participated in evaluation Patient Amnestic to Procedure: Yes Nausea / Vomiting: adequately controlled Pain: adequately controlled Airway Patency, RR, SpO2: stable & adequate BP & HR: stable & adequate Hydration State: stable & adequate Anesthetic Complications: no major complications apparent and Pt Satisfied with anesthetic care
[2023-04-01] MEDS ORDERED: OXYTOCIN 20 UNITS/LR 1,002 ML IV SCH (07:28)
[2023-04-01] MEDS ORDERED: diphenhydrAMINE Capsule 25 MG CAP PO PRN (07:28)
[2023-04-01] MEDS ORDERED: PROMETHAZINE HCL 25 MG in SODIUM CHLORIDE 0.9% 50 ML IV PRN (07:28)
[2023-04-01] MEDS ORDERED: SENNA 8.6 MG TAB PO PRN (07:28)
[2023-04-01] MEDS ORDERED: LACTATED RINGER'S 1,000 ML IV SCH (07:28)
[2023-04-01] MEDS ORDERED: BENZOCAINE 20% SPRY 85 APPLN/85 GM CAN EXT PRN (07:28)
[2023-04-01] MEDS ORDERED: MAGNESIUM HYDROXIDE SUSP 30 ML UDC PO PRN (07:28)
[2023-04-01] MEDS ORDERED: HYDROCORTISONE ACETATE 25 MG SUPP PR PRN (07:28)
[2023-04-01] MEDS: KETOROLAC 30 MG/ML VIAL IV PRN ×3 (07:42→21:08)
[2023-04-01] MEDS: MAGNESIUM SULFATE / WTR 40 GM/1,000 ML BAG IV SCH (08:56)
[2023-04-01] MEDS: SIMETHICONE 80 MG CHEW PO SCH ×4 (09:06→21:08)
[2023-04-01] MEDS: LABETALOL HCL 200 MG TAB PO SCH ×2 (09:08→21:16)
[2023-04-01] MEDS: HYDROmorphone INJ 0.5 MG/0.5 ML SYR IV PRN ×2 (09:14→18:14)
[2023-04-01] MEDS: LEVOTHYROXINE SODIUM 50 MCG TABLET PO SCH (10:41)
[2023-04-01] MEDS: FERROUS SULFATE 325 MG TAB PO SCH (12:04)
[2023-04-01] MEDS: DOCUSATE SODIUM 100 MG CAP PO SCH ×2 (12:05→21:08)
[2023-04-01] MEDS: PRENATAL VITAMIN 1 TAB PO SCH (12:05)
[2023-04-01] MEDS ORDERED: KETOROLAC 30 MG/ML VIAL IV PRN (23:22)
[2023-04-02] MEDS ORDERED: CALCIUM CARBONATE 500 MG CHEWABLE TAB PO PRN (03:50)
[2023-04-02] MEDS: oxyCODONE/ACETAMINOPHEN 5mg/325mg TAB PO PRN ×4 (04:04→21:19)
[2023-04-02] MEDS: IBUPROFEN 600 MG TAB PO PRN ×4 (04:05→21:21)
[2023-04-02 05:51] LABS: Basophils # (auto) 0.01 K/uL (0.00-0.20); Basophils % (auto) 0.1 %; Eosinophils # (auto) 0.07 K/uL (0.00-0.50); Eosinophils % (auto) 0.6 %; Hematocrit (blood only) 23.3 % (37.0-47.0); Hemoglobin 7.5 g/dl (12.0-16.0); Immature Granulocytes # (auto) 0.04 K/uL (0.01-0.20); Immature Granulocytes % (auto) 0.3 %; Lymphocytes # (auto) 1.14 K/uL (1.20-3.40); Lymphocytes % (auto) 9.8 %; Mean Corpuscular Hemoglobin 24.3 pg (25.0-34.0); Mean Corpuscular Hgb Conc 32.2 g/dL (32.0-36.0); Mean Corpuscular Volume 75.4 fL (80.0-100.0); Mean Platelet Volume 9.8 fL (9.4-12.4); Monocytes # (auto) 0.52 K/uL (0.11-0.59); Monocytes % (auto) 4.4 %; Neutrophils # (auto) 9.91 K/uL (1.40-6.50); Neutrophils % (auto) 84.8 %; Platelet Count 216 K/uL (130-400); RDW Coefficient of Variation 15.1 % (11.5-14.5); RDW Standard Deviation 41.2 fL (36.4-46.3); Red Blood Count 3.09 M/uL (4.20-5.40); White Blood Count 11.69 K/ul (4.8-10.8)
[2023-04-02] MEDS: LEVOTHYROXINE SODIUM 50 MCG TABLET PO SCH (06:06)
[2023-04-02 06:41] LABS: RBC Morphology Unremarkable
[2023-04-02] MEDS ORDERED: DIPHTHERIA/TETANUS/PERTUSSIS Vaccine (Tdap, Age 7+yrs) 0.5mL SYR/VL IM ONE (07:28)
--- NOTE | 2023-04-02 07:29 | Obstetrical Progress Note ---
Date of Service April 02, 2023 Assessment & Plan (1) Pre-eclampsia, severe: (2) Obesity affecting : (3) Encounter for care and examination after delivery: Plan pt doing well. bps noted. denies sx. will transfer to floor now >24h postmag. having heartburn and using tums, typically uses omeprazole, will order. ready to void and eat. breast, rh neg--baby rh pos, needs rhogam, ri. Subjective Ambulation: limited ambulation Voiding: no voiding problems Passing Gas:: Yes Diet Tolerance:: clear liquids Lochia:: Small Feeding Type:: breast feeding doing well with pain control. has heartburn and wants tums. no cp or sob. no n/v. maría po. Constitutional: + as per Subjective / HPI Physical Exam Constitutional WD/WN, vitals as above Respiratory normal respiratory effort, lungs clear to auscultation Cardiovascular Rate/Rhythm: regular rate and regular rhythm Gastrointestinal (Abdomen) Inspection/Auscultation: abdomen normal to inspection Percussion/Palpation: abdomen soft Fundus firm 1cm down--tender but appropriate incision c/d/i Musculoskeletal nt calves tr edema Neurologic grossly normal Psychiatric A+Ox3, euthymic affect Results & Data Vital Signs (Past 12 Hours) Vital Signs Temp Pulse Resp BP Pulse Ox 04/02/23 06:30 18 04/02/23 06:05 85 115/57 L 04/02/23 06:01 95 H 95 04/02/23 05:59 92 H 89 L 04/02/23 05:56 88 94 04/02/23 05:51 93 H 95 04/02/23 05:46 88 93 04/02/23 05:41 87 94 04/02/23 05:39 87 91 04/02/23 05:36 89 95 04/02/23 05:31 98 H 94 04/02/23 05:30 18 04/02/23 05:28 88 91 04/02/23 05:26 91 H 93 04/02/23 05:21 92 H 94 04/02/23 05:16 94 H 94 04/02/23 05:11 93 H 95 04/02/23 05:06 88 93 04/02/23 05:01 95 H 93 04/02/23 04:56 92 H 93 04/02/23 04:51 98 H 93 04/02/23 04:46 92 H 95 04/02/23 04:41 94 H 95 04/02/23 04:36 96 H 94 04/02/23 04:31 93 H 95 04/02/23 04:30 16 04/02/23 04:26 96 H 94 04/02/23 04:21 98 H 94 04/02/23 04:16 96 H 96 04/02/23 04:11 95 H 97 04/02/23 04:06 94 H 96 04/02/23 04:01 92 H 95 04/02/23 03:56 92 H 95 04/02/23 03:51 94 H 95 04/02/23 03:46 89 94 04/02/23 03:41 94 04/02/23 03:41 93 H 04/02/23 03:41 91 H 93 04/02/23 03:36 94 H 111/56 L 95 04/02/23 03:33 89 94 04/02/23 03:31 89 94 04/02/23 03:30 98.8 F 16 04/02/23 03:30 16 04/02/23 03:28 89 94 04/02/23 03:26 91 H 93 04/02/23 03:22 89 93 04/02/23 03:21 92 H 93 04/02/23 03:16 98 H 95 04/02/23 03:11 93 04/02/23 03:11 92 H 04/02/23 03:11 89 93 04/02/23 03:06 90 94 04/02/23 03:05 89 94 04/02/23 03:01 91 H 96 04/02/23 03:00 90 94 04/02/23 02:56 90 95 04/02/23 02:54 90 93 04/02/23 02:51 93 H 95 04/02/23 02:48 98 H 93 04/02/23 02:46 93 H 96 04/02/23 02:43 93 H 94 04/02/23 02:41 95 H 95 04/02/23 02:36 93 H 93 04/02/23 02:32 90 93 04/02/23 02:31 89 93 04/02/23 02:30 16 04/02/23 02:26 91 H 93 04/02/23 02:21 93 04/02/23 02:21 91 H 04/02/23 02:21 94 H 94 04/02/23 02:16 93 H 95 04/02/23 02:14 86 93 04/02/23 02:11 94 H 94 04/02/23 02:07 94 H 94 04/02/23 02:06 94 H 95 04/02/23 02:01 91 H 94 04/02/23 02:00 91 H 94 04/02/23 01:56 93 H 96 04/02/23 01:55 94 H 93 04/02/23 01:51 93 H 94 04/02/23 01:49 92 H 94 04/02/23 01:46 93 H 95 04/02/23 01:43 94 H 94 04/02/23 01:41 92 H 93 04/02/23 01:37 93 H 94 04/02/23 01:36 92 H 94 04/02/23 01:32 94 H 94 04/02/23 01:31 92 H 95 04/02/23 01:30 16 04/02/23 01:27 96 H 94 04/02/23 01:26 96 H 94 04/02/23 01:22 94 H 94 04/02/23 01:21 93 H 97 04/02/23 01:16 96 H 92 04/02/23 01:13 96 H 93 04/02/23 01:11 95 H 94 04/02/23 01:07 98 H 94 04/02/23 01:06 98 H 94 04/02/23 01:01 96 H 95 04/02/23 00:56 95 04/02/23 00:56 97 H 04/02/23 00:56 96 H 93 04/02/23 00:51 96 H 95 04/02/23 00:46 92 H 95 04/02/23 00:45 94 H 94 04/02/23 00:41 97 H 96 04/02/23 00:36 92 H 97 04/02/23 00:31 94 H 91 04/02/23 00:30 16 04/02/23 00:26 88 91 04/02/23 00:21 93 04/02/23 00:21 86 04/02/23 00:21 87 93 04/02/23 00:16 86 94 04/02/23 00:14 88 94 04/02/23 00:11 87 92 04/02/23 00:07 88 93 04/02/23 00:06 86 95 04/02/23 00:01 88 94 04/01/23 23:56 87 92 04/01/23 23:55 87 93 04/01/23 23:51 86 92 04/01/23 23:46 90 94 04/01/23 23:41 91 H 93 04/01/23 23:30 16 94 04/01/23 23:30 98.8 F 16 04/01/23 23:30 16 04/01/23 23:26 90 95 04/01/23 23:25 90 94 04/01/23 23:21 92 H 94 04/01/23 23:19 90 94 04/01/23 23:16 90 95 04/01/23 23:11 94 H 109/59 L 97 04/01/23 23:06 98 H 95 04/01/23 23:05 94 H 94 04/01/23 23:01 93 H 95 04/01/23 23:00 93 H 94 04/01/23 22:56 95 H 95 04/01/23 22:53 97 H 94 04/01/23 22:51 92 H 94 04/01/23 22:47 94 H 94 04/01/23 22:46 93 H 95 04/01/23 22:42 93 H 94 04/01/23 22:41 94 H 95 04/01/23 22:36 95 H 96 04/01/23 22:34 100 H 94 04/01/23 22:31 93 H 94 04/01/23 22:30 16 94 04/01/23 22:30 16 04/01/23 22:27 92 H 94 04/01/23 22:26 92 H 96 04/01/23 22:21 96 H 97 04/01/23 22:16 97 H 97 04/01/23 22:11 103 H 95 04/01/23 22:08 93 H 94 04/01/23 22:06 100 H 96 04/01/23 22:01 94 H 94 04/01/23 22:00 96 H 94 04/01/23 21:56 94 H 95 04/01/23 21:55 93 H 94 04/01/23 21:51 94 H 94 04/01/23 21:47 96 H 94 04/01/23 21:46 97 H 96 04/01/23 21:41 96 H 95 04/01/23 21:36 95 04/01/23 21:36 97 H 04/01/23 21:36 99 H 94 04/01/23 21:31 99 H 96 04/01/23 21:30 16 95 04/01/23 21:30 16 04/01/23 21:26 95 04/01/23 21:26 98 H 04/01/23 21:26 94 H 94 04/01/23 21:21 95 H 94 04/01/23 21:18 103 H 94 04/01/23 21:16 94 H 124/63 96 04/01/23 20:30 16 99 04/01/23 20:30 16 04/01/23 19:38 96 H 123/63 04/01/23 19:30 18 99 04/01/23 19:30 98.2 F 18 04/01/23 19:30 18
[2023-04-02] MEDS: SIMETHICONE 80 MG CHEW PO SCH ×4 (10:02→21:19)
[2023-04-02] MEDS: PANTOprazole 40 MG TAB PO SCH (10:03)
[2023-04-02] MEDS: DOCUSATE SODIUM 100 MG CAP PO SCH ×2 (10:03→21:19)
[2023-04-02] MEDS: FERROUS SULFATE 325 MG TAB PO SCH (10:03)
[2023-04-02] MEDS: PRENATAL VITAMIN 1 TAB PO SCH (10:03)
[2023-04-02] MEDS: LORATADINE 10 MG TAB PO SCH (10:03)
[2023-04-02] MEDS: LABETALOL HCL 200 MG TAB PO SCH ×2 (12:06→21:19)
[2023-04-02] MEDS ORDERED: LABETALOL HCL 100 MG TAB PO ONE (12:43)
[2023-04-02] MEDS ORDERED: bisacodyL 5 MG TABEC PO SCH (20:00)
[2023-04-03] MEDS: oxyCODONE/ACETAMINOPHEN 5mg/325mg TAB PO PRN ×3 (03:49→15:32)
[2023-04-03] MEDS: IBUPROFEN 600 MG TAB PO PRN ×3 (03:49→13:26)
[2023-04-03] MEDS: LEVOTHYROXINE SODIUM 50 MCG TABLET PO SCH (06:11)
[2023-04-03 06:36] LABS: Hematocrit (blood only) 21.4 % (37.0-47.0); Hemoglobin 6.8 g/dl (12.0-16.0)
[2023-04-03] MEDS ORDERED: bisacodyL 10 MG SUPP PR PRN (07:01)
--- NOTE | 2023-04-03 07:57 | Obstetrical Progress Note ---
Date of Service April 03, 2023 Assessment & Plan (1) Encounter for care and examination after delivery: doing well H&H thisAM is 6.8 but she is asymptomatic will continue with Labetalol 200mg bid with follow up in 2 days scripts for Percocet and Motrin sent to pharmacy listed Subjective Ambulation: ambulating normally Voiding: no voiding problems Passing Gas:: Yes Diet Tolerance:: regular diet Lochia:: Small Feeding Type:: breast feeding doing well - no lightheadedness or dizziness while ambulating no PIH symptoms Review of Systems All systems reviewed & are unremarkable except as noted in HPI & below Physical Exam Constitutional WD/WN, vitals as above Gastrointestinal (Abdomen) Inspection/Auscultation: + abdominal surgical incision (dry & intact no cellulitis) Psychiatric A+Ox3, euthymic affect Genitourinary OB Exam Abdomen: + fundal height Fundus: + firm and + relation to umbilicus (2 below) Results & Data Vital Signs (Past 12 Hours) Vital Signs Temp Pulse Resp BP Pulse Ox O2 Del Method 04/03/23 04:00 97.7 F 81 18 122/73 98 Room Air 04/03/23 00:30 Room Air 04/03/23 00:30 97.7 F 82 18 135/77 97 Room Air 04/02/23 20:25 98.8 F 89 20 129/74 99 Room Air
[2023-04-03] MEDS: LORATADINE 10 MG TAB PO SCH (08:49)
[2023-04-03] MEDS: FERROUS SULFATE 325 MG TAB PO SCH (08:50)
[2023-04-03] MEDS: DOCUSATE SODIUM 100 MG CAP PO SCH (08:50)
[2023-04-03] MEDS: LABETALOL HCL 200 MG TAB PO SCH (08:50)
[2023-04-03] MEDS: PRENATAL VITAMIN 1 TAB PO SCH (08:50)
[2023-04-03] MEDS: SIMETHICONE 80 MG CHEW PO SCH (08:50)
[2023-04-03] MEDS: PANTOprazole 40 MG TAB PO SCH (08:50)
--- NOTE | 2023-04-04 15:24 | Discharge Summary ---
Date of Service April 04, 2023 Admission HPI Per Admitting Provider 32 yo G1 at 37 2/7 wga presents w/ c/o of elevated BP. Dx w/ covid, s/s started on 03/24. Hd visit on 03/27 where Bp was normal. Since then covid s/s have improved. Today, noticed increase in swelling and took BP on her father in laws bp cuff and it was in the 160s so she called and was recommended for eval. +FM; denies ctx, LOF, VB. Denies KESSLER, vision change, CP, SOB, RUQ/epigastric pain. 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 On arrival, she was noted to have severe range BPs requiring anti-hypertensive medication and was diagnosed with pre-eclampsia with severe features. Labs were obtained and demonstrated a UP:C of 1.5. Induction was begun with alvarez bulb and pitocin. Following alvarez bulb expulsion, pitocin was titrated up and she underwent arom. BPs remained mild range but intermittently severe so labetalol 200mg PO BID was started. Pitocin got to 24 without much c hange so pit break was given. Pit was restarated and got to 24 with periods of adequacy but cervix did not progress beyond 5cm. She was counseled regarding options and opted to proceed with above procedure. See operative report for details. She received mag x 24 hrs after delivery. acute blood loss anemia was noted hwoever asymptomatic and was discharged home on labetalol 200mg po bid w/ plan for bp check later this week Coding Level of Care Code None Diagnoses Pre-eclampsia, severe O14.10 Encounter for care and examination after delivery Z39.2
== END 2023-04-03 17:54 | disposition home or self-care (01) | DRG 786 ==
LOC: OPB 22:45 → 4S1 22:46 → 4E1 04-02 09:06

== ENCOUNTER 2023-04-06 14:33 | Inpatient (IN) ==
[2023-04-06] MEDS ORDERED: fentaNYL citrate PF 100 MCG/2 ML VIAL IV STA ×2 (15:01→17:04)
--- NOTE | 2023-04-06 15:10 | Emergency Department Note ---
Impression & Plan Chest pain, Mild pre-eclampsia, , Bilateral edema of lower extremity, Pulmonary hypertension ED Provider Note HISTORY OF PRESENT ILLNESS: Patient is a 32-year-old female presenting with lower extremity edema and right- sided chest pain. Patient reports she just had a 5 days ago. She reports that she was induced early secondary to preeclampsia and she had not progressed past 5 cm and 30 hours. A . Reports that she woke up today and was having significant right sided rib pain. Locates the pain in the right lateral chest and describes it as a sharp sensation. She reports she is unable to take a deep breath secondary to the sharp pain. She reports that she had a fever of 100.3 last night. Denies any vaginal bleeding or discharge. She states that she has been having significant swelling of her lower legs for the last 5 days. Reports that it initially was just her bilateral feet but has progressed up her legs and into her groin and lower pelvic region. She reports significant discomfort at her suprapubic bone secondary to the swelling. ROS: as above PHYSICAL EXAM: Constitutional: Patient appears in no acute distress. HENT: Head: Normocephalic and atraumatic. Eyes: EOMI, PERRL Mouth/Throat: Mucous membranes moist. Neck: Trachea midline. Neck supple. Cardiovascular: Tachycardic with regular rhythm. No murmurs, rubs or gallops. Intact distal pulses. Pulmonary/Chest: No respiratory distress. Breath sounds clear and equal bilaterally. No wheezes or rales. No chest wall tenderness to palpation. Abdominal: Abdomen soft, no tenderness, rebound or guarding. incision is clean/dry and intact. Patient does have some swelling and tenderness to palpation with fullness to the suprapubic region. Musculoskeletal: No tenderness or deformity noted. +3 pitting edema of bilateral lower extremities extending to the groins. Skin: Warm and dry. No rash, erythema, pallor or cyanosis Psychiatric: Appropriate mood and affect for situation. Neurological: Alert and keenly responsive. CN II-XII grossly intact, moving all extremities equally and fully. MDM: - Vitals signs showed hypertension and tachycardia. - History obtained via patient. Patient presents with lower extremity edema and right-sided chest pain. Patient is 5 days from a section. Her was complicated by preeclampsia. She states that for the last 5 days she has been having progressively worsening lower extremity edema and today she woke up with right-sided chest pain. Denies any DVT or PE history. - Chronic conditions affecting care: hypothyroidism; preeclampsia - Differential diagnoses include, but are not limited to: hypertensive urgency; hypertensive emergency; ACS; PE; pulmonary edema; CHF - Order placed for continuous cardiac monitoring. At this time, monitor showed rate of 96 bpm with normal sinus rhythm, per my interpretation. - External medical records reviewed. - EKG interpreted by myself showed normal sinus rhythm. Rate tachycardic at 103 bpm. QTc 348. No acute ischemic changes. - Laboratory workup interpreted by myself showed normal WBC; anemia (Hgb 7.5); normal PT/INR; stable electrolytes; elevated troponin (18); normal BNP; normal lipase - CXR negative for pulmonary edema - Patient given 50 mcg IV fentanyl for chest pain - Given 10 mg IV hydralazine for BP control - CT PE negative for pulmonary emboli, but noted to have trace bilateral pleural effusions. - BP remained elevated. Given an additional 10 mg IV hydralazine. - On review of chart, patient has gained 3 kg since of her child 5 days ago. - Given 40 mg IV lasix. Given an additional 50 mcg IV fentanyl for continued chest pain - Echocardiogram showed preserved EF. Noted to have LVH and type II diastolic dysfunction. Noted to have dilated right ventricle and pulmonary hypertension. - Patient's BP remained elevated. Will admit to hospitalist for medical management and continued diuresis. - Discussion was had with career discovery teacher about patient's case and need for admission - Hospitalist consulted for admission - Patient admitted to [facility] for further evaluation and management. ASSESSMENT AND PLAN: Diagnosis: chest pain; lower extremity edema; pulmonary hypertension; post preeclampsia Plan: admit Past Med/Surg History Medical History (Updated 04/06/23 @ 19:39 by Gemini Diaz MD) Hypothyroidism affecting Hypothyroidism affecting in first trimester Abnormal thyroid blood test ASCUS with positive high risk HPV cervical Eczema Chicken pox Surgical History S/P tonsillectomy S/P cholecystectomy Family History Aunt Breast cancer Grandfather (Paternal) Colorectal cancer Father Diabetes Sister Gestational diabetes Other Hypercholesteremia Hypertension Kidney stone Ovarian cyst PCOS (polycystic ovarian syndrome) Thyroid disease Denies family history of Ovarian cancer Social History Smoking Status: Never smoker Do You Dip or Chew Tobacco: No; Hx Alcohol Use: No Hx Substance Use: No Preferred Language: Honduran Communication Ability: Effective Manager Clinical Applications Required: Voice Beliefs That Will Affect Care: None marital status: marital status details: John Holder (33) [phone] Current Living Situation: Spouse Current Living Situation Comment: lives with spouse, 2 dogs current occupational status: employed 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 Feels Safe at Home: Yes Assistive Devices: None Allergies Allergies Allergy/AdvReac Type Severity Reaction Status Date / Time No Known Allergies Allergy Verified 03/27/23 16:08 Home Meds Home Medications Medication Instructions Recorded Confirmed docosahexaenoic acid 200 mg 1 mg PO DAILY 01/31/22 04/06/23 capsule ( DHA) loratadine 10 mg tablet (Claritin) 10 mg PO DAILY 01/31/22 04/06/23 omeprazole 20 mg capsule,delayed 20 mg PO DAILY 01/31/22 04/06/23 release levothyroxine 50 mcg tablet 50 mcg PO UD 04/06/23 04/06/23 Previous Rx's Medication Instructions Recorded ibuprofen 600 mg tablet 600 mg PO Q6H PRN pain #60 tabs 04/03/23 labetalol 200 mg tablet 200 mg PO BID #60 tabs 04/03/23 Results & Data (ED) Vital Signs Vital Signs - 24 hr 04/06/23 14:34 04/06/23 15:27 04/06/23 15:27 Temperature 36.6 C Temperature Source Temporal Artery Scan Pulse Rate 109 H Pulse Rate [Apical] 98 H Respiratory Rate 18 20 Respiratory Effort / Characteristics Non-Labored Spontaneous Non-Labored Respiratory Depth Normal Normal Respiratory Pattern Regular Blood Pressure 190/97 H Blood Pressure [Right Arm] 176/116 H Blood Pressure Mean 128 Blood Pressure Mean [Right Arm] 136 Blood Pressure Position Sitting Pulse Oximetry 100 98 99 Oxygen Delivery Method Room Air Room Air Room Air Sepsis Recent Fever Within 48 Hours No Sepsis New/Unexplained Change in Mental Status N/A Sepsis Action Taken by Nursing No Action Required 04/06/23 15:44 04/06/23 16:03 04/06/23 16:11 Temperature Temperature Source Pulse Rate 98 H 98 H Pulse Rate [Apical] Respiratory Rate Respiratory Effort / Characteristics Respiratory Depth Respiratory Pattern Blood Pressure 169/97 H 168/90 H Blood Pressure [Right Arm] 168/90 H Blood Pressure Mean Blood Pressure Mean [Right Arm] 116 Blood Pressure Position Pulse Oximetry Oxygen Delivery Method Sepsis Recent Fever Within 48 Hours Sepsis New/Unexplained Change in Mental Status Sepsis Action Taken by Nursing 04/06/23 17:21 04/06/23 18:41 04/06/23 18:42 Temperature Temperature Source Pulse Rate 96 H Pulse Rate [Apical] 100 H 96 H Respiratory Rate 20 Respiratory Effort / Characteristics Non-Labored Respiratory Depth Normal Respiratory Pattern Blood Pressure 165/100 H Blood Pressure [Right Arm] 165/100 H 165/100 H Blood Pressure Mean Blood Pressure Mean [Right Arm] 121 121 Blood Pressure Position Pulse Oximetry 98 Oxygen Delivery Method Room Air Sepsis Recent Fever Within 48 Hours Sepsis New/Unexplained Change in Mental Status Sepsis Action Taken by Nursing Laboratory Data 04/06/23 15:25 04/06/23 15:25 Lab Results 04/06/23 04/06/23 Range/Units 15:25 17:35 WBC 9.61 (4.8-10.8) K/ul RBC 3.16 L (4.20-5.40) M/uL Hgb 7.5 L (12.0-16.0) g/dl Hct 24.5 L (37.0-47.0) % MCV 77.5 L (80.0-100.0) fL MCH 23.7 L (25.0-34.0) pg MCHC 30.6 L (32.0-36.0) g/dL RDW Std Deviation 43.2 (36.4-46.3) fL RDW Coeff of Yoon 15.1 H (11.5-14.5) % Plt Count 377 (130-400) K/uL MPV 9.1 L (9.4-12.4) fL Immature Gran % (Auto) 1.4 % Neut % (Auto) 78.9 % Lymph % (Auto) 10.6 % Dickens % (Auto) 7.8 % Eos % (Auto) 1.2 % Baso % (Auto) 0.1 % Neut # (Auto) 7.58 H (1.40-6.50) K/uL Lymph # (Auto) 1.02 L (1.20-3.40) K/uL Dickens # (Auto) 0.75 H (0.11-0.59) K/uL Eos # (Auto) 0.12 (0.00-0.50) K/uL Baso # (Auto) 0.01 (0.00-0.20) K/uL Immature Gran # (Auto) 0.13 (0.01-0.20) K/uL RBC Morphology Unremarkable PT 10.9 (9.0-12.0) Seconds INR 1.0 (0.9-1.1) Sodium 137 (136-145) mmol/L Potassium 4.2 (3.5-5.1) mmol/L Chloride 105 (98-107) mmol/L Carbon Dioxide 22 (21-32) mmol/L Anion Gap 10 (3-11) BUN 9 (6-23) mg/dl Creatinine 0.78 (0.6-1.2) mg/dl Est Cr Clr Drug Dosing 126.4 ml/min Est GFR ( Amer) 117.4 ml/min Est GFR (Non-Af Amer) 101.3 ml/min BUN/Creatinine Ratio 11.5 (10-20) Glucose 90 (70-99(Fasting)) mg/dl Calcium 8.7 (8.6-10.3) mg/dl Magnesium 1.7 (1.7-2.4) mg/dl Total Bilirubin 0.2 (0.2-1.0) mg/dl AST 13 (13-39) U/L ALT 10 (7-52) U/L Alkaline Phosphatase 128 H (34-104) U/L Troponin I High Sens 18.0 H 13.2 D (0-14) pg/ml B-Natriuretic Peptide 79 (0-100) pg/ml Total Protein 7.2 (6.0-8.3) gm/dl Albumin 3.3 L (3.4-5.0) gm/dl Globulin 3.9 (2.5-4.0) gm/dl Albumin/Globulin Ratio 0.8 L (0.9-2) Lipase 17 (11-82) U/L Administered Medications Discontinued Medications Fentanyl Citrate (Fentanyl Citrate Pf 100 Mcg/2 Ml Vial) 50 mcg IV NOW STA Stop: 04/06/23 15:02 Last Admin: 04/06/23 15:27 Dose: 50 mcg Documented By: JÚNIOR Fentanyl Citrate (Fentanyl Citrate Pf 100 Mcg/2 Ml Vial) 50 mcg IV NOW STA Stop: 04/06/23 17:05 Last Admin: 04/06/23 17:11 Dose: 50 mcg Documented By: JÚNIOR Furosemide (Furosemide 40 Mg/4 Ml Vial) 40 mg IV ONE ONE Stop: 04/06/23 18:11 Last Admin: 04/06/23 18:42 Dose: 40 mg Documented By: JÚNIOR Ioversol (Optiray 320 125ml) 118 ml IV ONCE ONE Stop: 04/06/23 16:21 Last Admin: 04/06/23 16:20 Dose: 118 ml Documented By: SUDHEER Labetalol HCl (Labetalol Hcl Iv 5 Mg/Ml 20ml) 10 mg IV NOW STA Stop: 04/06/23 15:34 Last Admin: 04/06/23 15:44 Dose: 10 mg Documented By: JÚNIOR Co-signed By: JEANNA Labetalol HCl (Labetalol Hcl Iv 5 Mg/Ml 20ml) 10 mg IV NOW STA Stop: 04/06/23 18:07 Last Admin: 04/06/23 18:42 Dose: 10 mg Documented By: JÚNIOR Co-signed By: JEANNA Imaging Data Radiologist's Impression: Chest X-Ray 04/06/23 14:53 XR chest 1V portable CLINICAL HISTORY: Chest pain. COMPARISON STUDY: No previous studies for comparison. FINDINGS: Lung volumes are normal. Lungs are clear. There is no pneumothorax or pleural effusion. Cardiac size is normal. Mediastinal contours are normal. There is no evidence for pulmonary edema. IMPRESSION: No acute cardiopulmonary findings. ACT 112: Negative or not required by law. Electronically signed by: Loyd Machado M.D. 04/06/2023 3:28 PM Chest CTA 04/06/23 15:01 CT ANGIOGRAPHY OF THE CHEST, PULMONARY EMBOLUS PROTOCOL CLINICAL HISTORY: Shortness of breath. Chest pain. Recent delivery. Evaluate for pulmonary embolus. COMPARISON STUDY: Chest radiograph performed earlier today. TECHNIQUE: Following IV administration of 118 mL of Optiray, helical axial images of the chest were obtained utilizing the pulmonary embolus protocol. Maximal intensity projections and sagittal and coronal reformats were viewed on an independent 3D workstation. IV contrast was administered without complication. Automated exposure control was utilized for the study. A dose lowering technique was utilized adhering to the principles of ALARA. CT DOSE: 883.88 mGy.cm FINDINGS: No pulmonary emboli are identified although the segmental and subsegmental pulmonary arteries are suboptimally assessed due to suboptimal opacification. There is no thoracic aortic dissection. Size of the heart is normal. No pericardial effusion. There is no pneumothorax. Trace bilateral pleural effusions are present. Subpleural opacities represent atelectasis. There is no consolidation to suggest pneumonia. No acute fractures within the bony thorax are noted. There is no thoracic lymphadenopathy. Borderline splenomegaly is present. IMPRESSION: 1. No pulmonary emboli identified although segmental and subsegmental pulmonary arteries suboptimally assessed due to suboptimal opacification. 2. Trace bilateral pleural effusions. Subpleural opacities consistent with atelectasis. No consolidation to suggest pneumonia. ACT 112: Negative or not required by law. Electronically signed by: Loyd Machado M.D. 04/06/2023 4:33 PM Discharge Plan Visit Data Chief Complaint: Rib Injury/Pain Stated Complaint: RT SIDE RIB PAIN, SWELLING BY INCISION ED Provider: Gemini Diaz Discharge Problem: Chest pain, Mild pre-eclampsia, , Bilateral edema of lower extremity, Pulmonary hypertension Forms Stand Alone Forms: [facility] Prescriptions Prescriptions: No Action omeprazole 20 mg capsule,delayed release(DR/EC) 20 mg PO DAILY DHA 200 mg capsule 1 mg PO DAILY loratadine [Claritin] 10 mg tablet 10 mg PO DAILY ibuprofen 600 mg tablet 600 mg PO Q6H PRN (Reason: pain) Qty: 60 1RF labetalol 200 mg tablet 200 mg PO BID Qty: 60 0RF levothyroxine 50 mcg tablet 50 mcg PO UD Rx Instructions: Per pt 2 tablets every other day Referrals Referrals: Digna Nunez DO [Primary Care Provider] -
--- NOTE | 2023-04-06 15:30 | XRay Report ---
XR chest 1V portable CLINICAL HISTORY: Chest pain. COMPARISON STUDY: No previous studies for comparison. FINDINGS: Lung volumes are normal. Lungs are clear. There is no pneumothorax or pleural effusion. Car diac size is normal. Mediastinal contours are normal. There is no evidence for pulmonary edema. IMPRESSION: No acute cardiopulmonary findings. ACT 112: Negative or not required by law. Electronically signed by: Loyd Machado M.D. 04/06/2023 3:28 PM
[2023-04-06] MEDS ORDERED: LABETALOL HCL IV 5 MG/ML 20ML IV STA ×2 (15:33→18:06)
[2023-04-06 15:40] LABS: Basophils # (auto) 0.01 K/uL (0.00-0.20); Basophils % (auto) 0.1 %; Eosinophils # (auto) 0.12 K/uL (0.00-0.50); Eosinophils % (auto) 1.2 %; Hematocrit (blood only) 24.5 % (37.0-47.0); Hemoglobin 7.5 g/dl (12.0-16.0); Immature Granulocytes # (auto) 0.13 K/uL (0.01-0.20); Immature Granulocytes % (auto) 1.4 %; Lymphocytes # (auto) 1.02 K/uL (1.20-3.40); Lymphocytes % (auto) 10.6 %; Mean Corpuscular Hemoglobin 23.7 pg (25.0-34.0); Mean Corpuscular Hgb Conc 30.6 g/dL (32.0-36.0); Mean Corpuscular Volume 77.5 fL (80.0-100.0); Mean Platelet Volume 9.1 fL (9.4-12.4); Monocytes # (auto) 0.75 K/uL (0.11-0.59); Monocytes % (auto) 7.8 %; Neutrophils # (auto) 7.58 K/uL (1.40-6.50); Neutrophils % (auto) 78.9 %; Platelet Count 377 K/uL (130-400); RDW Coefficient of Variation 15.1 % (11.5-14.5); RDW Standard Deviation 43.2 fL (36.4-46.3); Red Blood Count 3.16 M/uL (4.20-5.40); White Blood Count 9.61 K/ul (4.8-10.8)
[2023-04-06 15:47] LABS: Prothrombin Time 10.9 Seconds (9.0-12.0)
[2023-04-06 15:56] LABS: RBC Morphology Unremarkable
[2023-04-06 16:03] LABS: Albumin Globulin Ratio 0.8 (0.9-2); Albumin Level 3.3 gm/dl (3.4-5.0); BUN Creatinine Ratio 11.5 (10-20); Bilirubin,Total 0.2 mg/dl (0.2-1.0); Calcium 8.7 mg/dl (8.6-10.3); Creatinine Clr Calc Pharmacy 126.4 ml/min; Est GFR (African American) 117.4 ml/min; Est GFR (Non-African American) 101.3 ml/min; Globulin 3.9 gm/dl (2.5-4.0); Magnesium 1.7 mg/dl (1.7-2.4); Potassium 4.2 mmol/L (3.5-5.1); Total Protein 7.2 gm/dl (6.0-8.3)
[2023-04-06] MEDS ORDERED: OPTIRAY 320 125ml IV ONE (16:20)
--- NOTE | 2023-04-06 16:35 | CT Scan Report ---
CT ANGIOGRAPHY OF THE CHEST, PULMONARY EMBOLUS PROTOCOL CLINICAL HISTORY: Shortness of breath. Chest pain. Recent delivery. Evaluate for pulmonary embolus. COMPARISON STUDY: Chest radiograph performed earlier today. TECHNIQUE: Following IV administration of 118 mL of Optiray, helical axial images of the chest were o btained utilizing the pulmonary embolus protocol. Maximal intensity projections and sagittal and cor onal reformats were viewed on an independent 3D workstation. IV contrast was administered without co mplication. Automated exposure control was utilized for the study. A dose lowering technique was ut ilized adhering to the principles of ALARA. CT DOSE: 883.88 mGy.cm FINDINGS: No pulmonary emboli are identified although the segmental and subsegmental pulmonary arter ies are suboptimally assessed due to suboptimal opacification. There is no thoracic aortic dissection . Size of the heart is normal. No pericardial effusion. There is no pneumothorax. Trace bilateral ple ural effusions are present. Subpleural opacities represent atelectasis. There is no consolidation to suggest pneumonia. No acute fractures within the bony thorax are noted. There is no thoracic lymphade nopathy. Borderline splenomegaly is present. IMPRESSION: 1. No pulmonary emboli identified although segmental and subsegmental pulmonary arteries suboptimally assessed due to suboptimal opacification. 2. Trace bilateral pleural effusions. Subpleural opacities consistent with atelectasis. No consolidat ion to suggest pneumonia. ACT 112: Negative or not required by law. Electronically signed by: Loyd Machado M.D. 04/06/2023 4:33 PM
--- NOTE | 2023-04-06 18:08 | XCELERA ---
[id number]
[2023-04-06] MEDS ORDERED: FUROSEMIDE 40 MG/4 ML VIAL IV ONE (18:10)
[2023-04-06] MEDS ORDERED: BENZOCAINE 20% SPRY 85 APPLN/85 GM CAN EXT ONE (19:10)
[2023-04-06 20:04] LABS: Appearance Urine Clear (Clear); Bilirubin Urine Negative (Negative); Blood Urine 3+ (Negative); Color Urine Yellow; Glucose Urine UA Negative (Negative); Ketones Urine Negative (Negative); Leukocyte Esterase Urine 2+ (Negative); Nitrite Urine Negative (Negative); Protein Urine Negative (Negative); Specific Gravity Urine 1.008 (1.000-1.030); Urobilinogen Urine Negative (Negative); pH Urine 6.5 (4.5-7.5)
[2023-04-06 20:21] LABS: Bacteria Urine Automated 1+ (Negative); Cast Urine Automated 0 /lpf (0-5); Epithelial Cell Urine Auto 0-5 /lpf (0-5)
[2023-04-06] MEDS ORDERED: MoRPHine SULFATE 4 MG/ML 1 ML CARP\\VIAL IV STA (20:56)
--- NOTE | 2023-04-06 21:19 | History & Physical Report ---
Date of Service April 06, 2023 Assessment & Plan (1) Bilateral edema of lower extremity: Plan: 32-year-old female with past med history significant for GERD, obesity who had 5 days ago comes because of right-sided rib pain and also worsening lower extremity edema. Patient says she was diagnosed with blood pressure at 37th week of . She had edema in lower extremity but that got significantly worse last 5 days. And today also developed right-sided rib pain and the pain is worse when taking deep breath. Also had a temperature of 100.3 degrees at home. No runny nose. Has some cough. No nausea. Has some pain at . Normal bowel and bladder movements. Blood pressure was high when she came to the ER and received couple of doses of IV labetalol. Bilateral lower extremity edema Right-sided rib pain Troponin first set 18 repeat is 13.2. Will follow serial cardiac enzymes CTA chest no PE Echo. Normal EF of 55 to 60%. No regional wall motion abnormalities. Mild concentric left ventricle hypertrophy. Mildly dilated right ventricle with normal systolic function. Moderate pulmonary hypertension. RVSP 54 mmHg Received 1 dose of IV Lasix 40 mg in the ER Will continue with IV Lasix 40 mg daily Will check lower extremity Dopplers Consult cardiology in a.m. for further recommendations Hypertensive urgency Continue home labetalol IV labetalol as needed Cardiology consulted Questionable right upper abdominal pain Will do liver ultrasound Anemia Hemoglobin 7.5 We will check iron studies, vitamin B12 folate levels Stool for Hemoccult Follow labs UTI Rocephin Follow cultures Hypothyroidism On Synthyroid We will follow TSH GERD Omeprazole DVT prophylaxis SCDs for now Disposition Telemetry floor Full code History of Present Illness Chief Complaint: Right-sided rib pain and increasing lower extremity edema Primary Care Provider: Digna Nunez DO 32-year-old female with past med history significant for GERD, obesity who had 5 days ago comes because of right-sided rib pain and also worsening lower extremity edema. Patient says she was diagnosed with blood pressure at 37th week of . She had edema in lower extremity but that got significantly worse last 5 days. And today also developed right-sided rib pain and the pain is worse when taking deep breath. Also had a temperature of 100.3 degrees at home. No runny nose. Has some cough. No nausea. Has some pain at . Normal bowel and bladder movements. Blood pressure was high when she came to the ER and received couple of doses of IV labetalol. Past medical history. As mentioned above Past surgical history. Bowel Surgery. Dental surgery. Tonsillectomy. C- section. Social history. No smoking. Alcohol yes per epic. No drug use. Family history. Mother has allergies. Psoriasis. Father has diabetes. Hypertension. Sister has PCOS. Maternal cousin had breast cancer. Maternal grandfather had prostate cancer. Allergies Allergy/AdvReac Type Severity Reaction Status Date / Time No Known Allergies Allergy Verified 03/27/23 16:08 Home Medications Medication Instructions Recorded Confirmed Type docosahexaenoic acid 200 mg 1 mg PO DAILY 01/31/22 04/06/23 History capsule ( DHA) loratadine 10 mg tablet (Claritin) 10 mg PO DAILY 01/31/22 04/06/23 History omeprazole 20 mg capsule,delayed 20 mg PO DAILY 01/31/22 04/06/23 History release ibuprofen 600 mg tablet 600 mg PO Q6H PRN pain #60 tabs 04/03/23 04/06/23 Rx labetalol 200 mg tablet 200 mg PO BID #60 tabs 04/03/23 04/06/23 Rx levothyroxine 50 mcg tablet 50 mcg PO UD 04/06/23 04/06/23 History Past Med/Surg History Medical History (Updated 04/07/23 @ 00:09 by Julio C George) Hypothyroidism affecting Hypothyroidism affecting in first trimester Abnormal thyroid blood test ASCUS with positive high risk HPV cervical Eczema Chicken pox Surgical History S/P tonsillectomy S/P cholecystectomy Family History Aunt Breast cancer Grandfather (Paternal) Colorectal cancer Father Diabetes Sister Gestational diabetes Other Hypercholesteremia Hypertension Kidney stone Ovarian cyst PCOS (polycystic ovarian syndrome) Thyroid disease Denies family history of Ovarian cancer Social History Smoking Status: Never smoker Do You Dip or Chew Tobacco: No; Hx Alcohol Use: Yes Hx Substance Use: No Preferred Language: Chilean Communication Ability: Effective Gelatin Maker Utility Required: No Beliefs That Will Affect Care: None marital status: marital status details: John Holder [phone] Current Living Situation: Family Current Living Situation Comment: lives with spouse, 2 dogs current occupational status: employed 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 ENT- oropharynx clear Neck- supple, no JVD. Lungs- clear to auscultation no wheezing or crackles Heart- regular rhythm; no murmur, no gallop. Abdomen- normal bowel sounds, soft, diffuse tender no distension Extremities- b/l lower extremity gross edema present. no erythema seen Neuro- alert, oriented x 3; PERRL, no facial palsy; no dysarthria; moves extremities Results & Data Results & Data Vital Signs (Past 12 Hours) Vital Signs Temp Pulse Pulse Resp BP BP Pulse Ox 04/06/23 19:52 157/82 H 04/06/23 19:46 157/82 H 04/06/23 19:46 97 04/06/23 19:35 98 04/06/23 19:00 99 04/06/23 18:45 99 04/06/23 18:45 172/99 H 04/06/23 18:42 96 H 165/100 H 04/06/23 18:41 165/100 H 04/06/23 18:41 100 04/06/23 18:41 96 H 165/100 H 04/06/23 18:40 100 04/06/23 18:15 175/106 H 04/06/23 18:15 99 04/06/23 18:00 171/89 H 04/06/23 18:00 100 04/06/23 17:45 100 04/06/23 17:45 175/109 H 04/06/23 17:30 178/97 H 04/06/23 17:30 100 04/06/23 17:21 100 H 20 165/100 H 98 04/06/23 17:15 165/100 H 04/06/23 17:15 97 04/06/23 17:00 178/102 H 04/06/23 17:00 100 04/06/23 16:56 173/100 H 04/06/23 16:56 99 04/06/23 16:11 98 H 168/90 H 04/06/23 16:03 168/90 H 04/06/23 16:03 99 04/06/23 16:03 168/90 H 04/06/23 16:00 100 04/06/23 15:45 100 04/06/23 15:44 169/97 H 04/06/23 15:44 98 H 169/97 H 04/06/23 15:27 99 04/06/23 15:27 98 H 20 176/116 H 98 04/06/23 15:16 106 H 22 100 04/06/23 15:03 103 H 22 98 04/06/23 14:34 36.6 C 109 H 18 190/97 H 100 O2 Del Method 04/06/23 19:52 04/06/23 19:46 04/06/23 19:46 04/06/23 19:35 04/06/23 19:00 04/06/23 18:45 04/06/23 18:45 04/06/23 18:42 04/06/23 18:41 04/06/23 18:41 04/06/23 18:41 04/06/23 18:40 04/06/23 18:15 04/06/23 18:15 04/06/23 18:00 04/06/23 18:00 04/06/23 17:45 04/06/23 17:45 04/06/23 17:30 04/06/23 17:30 04/06/23 17:21 Room Air 04/06/23 17:15 04/06/23 17:15 04/06/23 17:00 04/06/23 17:00 04/06/23 16:56 04/06/23 16:56 04/06/23 16:11 04/06/23 16:03 04/06/23 16:03 04/06/23 16:03 04/06/23 16:00 04/06/23 15:45 04/06/23 15:44 04/06/23 15:44 04/06/23 15:27 Room Air 04/06/23 15:27 Room Air 04/06/23 15:16 04/06/23 15:03 04/06/23 14:34 Room Air Diagnostic Findings Laboratory Results WBC 9.61 K/ul (4.8-10.8) 04/06/23 15:25 RBC 3.16 M/uL (4.20-5.40) L 04/06/23 15:25 Hgb 7.5 g/dl (12.0-16.0) L 04/06/23 15:25 Hct 24.5 % (37.0-47.0) L 04/06/23 15:25 MCV 77.5 fL (80.0-100.0) L 04/06/23 15:25 MCH 23.7 pg (25.0-34.0) L 04/06/23 15:25 MCHC 30.6 g/dL (32.0-36.0) L 04/06/23 15:25 RDW Std Deviation 43.2 fL (36.4-46.3) 04/06/23 15:25 RDW Coeff of Yoon 15.1 % (11.5-14.5) H 04/06/23 15:25 Plt Count 377 K/uL (130-400) 04/06/23 15:25 MPV 9.1 fL (9.4-12.4) L 04/06/23 15:25 Immature Gran % (Auto) 1.4 % 04/06/23 15:25 Neut % (Auto) 78.9 % 04/06/23 15:25 Lymph % (Auto) 10.6 % 04/06/23 15:25 [place] % (Auto) 7.8 % 04/06/23 15:25 Eos % (Auto) 1.2 % 04/06/23 15:25 Baso % (Auto) 0.1 % 04/06/23 15:25 Neut # (Auto) 7.58 K/uL (1.40-6.50) H 04/06/23 15:25 Lymph # (Auto) 1.02 K/uL (1.20-3.40) L 04/06/23 15:25 [place] # (Auto) 0.75 K/uL (0.11-0.59) H 04/06/23 15:25 Eos # (Auto) 0.12 K/uL (0.00-0.50) 04/06/23 15:25 Baso # (Auto) 0.01 K/uL (0.00-0.20) 04/06/23 15:25 Immature Gran # (Auto) 0.13 K/uL (0.01-0.20) 04/06/23 15:25 RBC Morphology Unremarkable 04/06/23 15:25 PT 10.9 Seconds (9.0-12.0) 04/06/23 15:25 INR 1.0 (0.9-1.1) 04/06/23 15:25 Sodium 137 mmol/L (136-145) 04/06/23 15:25 Potassium 4.2 mmol/L (3.5-5.1) 04/06/23 15:25 Chloride 105 mmol/L (98-107) 04/06/23 15:25 Carbon Dioxide 22 mmol/L (21-32) 04/06/23 15:25 Anion Gap 10 (3-11) 04/06/23 15:25 BUN 9 mg/dl (6-23) 04/06/23 15:25 Creatinine 0.78 mg/dl (0.6-1.2) 04/06/23 15:25 Est Cr Clr Drug Dosing 126.4 ml/min 04/06/23 15:25 Est GFR ( Amer) 117.4 ml/min 04/06/23 15:25 Est GFR (Non-Af Amer) 101.3 ml/min 04/06/23 15:25 BUN/Creatinine Ratio 11.5 (10-20) 04/06/23 15:25 Glucose 90 mg/dl (70-99(Fasting)) 04/06/23 15:25 Calcium 8.7 mg/dl (8.6-10.3) 04/06/23 15:25 Magnesium 1.7 mg/dl (1.7-2.4) 04/06/23 15:25 Total Bilirubin 0.2 mg/dl (0.2-1.0) 04/06/23 15:25 AST 13 U/L (13-39) 04/06/23 15:25 ALT 10 U/L (7-52) 04/06/23 15:25 Alkaline Phosphatase 128 U/L (34-104) H 04/06/23 15:25 Troponin I High Sens 13.2 pg/ml (0-14) D 04/06/23 17:35 B-Natriuretic Peptide 79 pg/ml (0-100) 04/06/23 15:25 Total Protein 7.2 gm/dl (6.0-8.3) 04/06/23 15:25 Albumin 3.3 gm/dl (3.4-5.0) L 04/06/23 15:25 Globulin 3.9 gm/dl (2.5-4.0) 04/06/23 15:25 Albumin/Globulin Ratio 0.8 (0.9-2) L 04/06/23 15:25 Lipase 17 U/L (11-82) 04/06/23 15:25 Urine Color Yellow 04/06/23 19:48 Urine Appearance Clear (Clear) 04/06/23 19:48 Urine pH 6.5 (4.5-7.5) 04/06/23 19:48 Ur Specific [place] 1.008 (1.000-1.030) 04/06/23 19:48 Urine Protein Negative (Negative) 04/06/23 19:48 Urine Glucose (UA) Negative (Negative) 04/06/23 19:48 Urine Ketones Negative (Negative) 04/06/23 19:48 Urine Blood 3+ (Negative) H 04/06/23 19:48 Urine Nitrite Negative (Negative) 04/06/23 19:48 Urine Bilirubin Negative (Negative) 04/06/23 19:48 Urine Urobilinogen Negative (Negative) 04/06/23 19:48 Ur Leukocyte Esterase 2+ (Negative) H 04/06/23 19:48 Urine WBC (Auto) 5-10 /hpf (0-5) H 04/06/23 19:48 Urine RBC (Auto) 10-30 /hpf (0-4) H 04/06/23 19:48 U Hyaline Cast (Auto) 0 /lpf (0-5) 04/06/23 19:48 U Epithel Cells (Auto) 0-5 /lpf (0-5) 04/06/23 19:48 Urine Bacteria (Auto) 1+ (Negative) H 04/06/23 19:48 Impressions Chest X-Ray 04/06/23 14:53 XR chest 1V portable CLINICAL HISTORY: Chest pain. COMPARISON STUDY: No previous studies for comparison. FINDINGS: Lung volumes are normal. Lungs are clear. There is no pneumothorax or pleural effusion. Cardiac size is normal. Mediastinal contours are normal. There is no evidence for pulmonary edema. IMPRESSION: No acute cardiopulmonary findings. ACT 112: Negative or not required by law. Electronically signed by: Loyd Machado M.D. 04/06/2023 3:28 PM Chest CTA 04/06/23 15:01 CT ANGIOGRAPHY OF THE CHEST, PULMONARY EMBOLUS PROTOCOL CLINICAL HISTORY: Shortness of breath. Chest pain. Recent delivery. Evaluate for pulmonary embolus. COMPARISON STUDY: Chest radiograph performed earlier today. TECHNIQUE: Following IV administration of 118 mL of Optiray, helical axial images of the chest were obtained utilizing the pulmonary embolus protocol. Maximal intensity projections and sagittal and coronal reformats were viewed on an independent 3D workstation. IV contrast was administered without complication. Automated exposure control was utilized for the study. A dose lowering technique was utilized adhering to the principles of ALARA. CT DOSE: 883.88 mGy.cm FINDINGS: No pulmonary emboli are identified although the segmental and subsegmental pulmonary arteries are suboptimally assessed due to suboptimal opacification. There is no thoracic aortic dissection. Size of the heart is normal. No pericardial effusion. There is no pneumothorax. Trace bilateral pleural effusions are present. Subpleural opacities represent atelectasis. There is no consolidation to suggest pneumonia. No acute fractures within the bony thorax are noted. There is no thoracic lymphadenopathy. Borderline splenomegaly is present. IMPRESSION: 1. No pulmonary emboli identified although segmental and subsegmental pulmonary arteries suboptimally assessed due to suboptimal opacification. 2. Trace bilateral pleural effusions. Subpleural opacities consistent with atelectasis. No consolidation to suggest pneumonia. ACT 112: Negative or not required by law. Electronically signed by: Loyd Machado M.D. 04/06/2023 4:33 PM ECG Additional Comments: ECG. Sinus tachycardia rate of 103. Possible left atrial enlargement. Code Status & VTE Plan VTE Prophylaxis Plan VTE Prophylaxis will be ordered: Yes
[2023-04-06] MEDS ORDERED: LABETALOL HCL IV 5 MG/ML 20ML IV PRN (23:10)
[2023-04-07] MEDS: MoRPHine SULFATE 4 MG/ML 1 ML CARP\\VIAL IV PRN ×3 (01:40→12:48)
[2023-04-07] MEDS: LABETALOL HCL 200 MG TAB PO SCH ×3 (01:41→20:20)
[2023-04-07] MEDS: cefTRIAXone SODIUM 2,000 MG in DEXTROSE 5 % MINI-B 50 ML IV SCH (01:42)
--- NOTE | 2023-04-07 01:57 | Ultrasound Report ---
Exam(s): US VENOUS BILATERAL LOWER EXTREMITIES EXAM: US Duplex Bilateral Lower Extremities Veins CLINICAL HISTORY: Reason for exam: b/l lower ext edema. dvt?. TECHNIQUE: Real-time duplex ultrasound scan of the bilateral lower extremity veins integrating B-mode two-dimensional vascular structure, Doppler spectral analysis, color flow Doppler imaging and compression. COMPARISON: None FINDINGS: Right deep veins: Unremarkable. No DVT in the right common femoral, femoral, proximal deep femoral or popliteal veins. The veins demonstrate normal color flow, are normally compressible, with normal phasic flow and/or augmentation response. Right superficial veins: Unremarkable. No thrombus in the visualized right great saphenous vein. Left deep veins: Unremarkable. No DVT in the left common femoral, femoral, proximal deep femoral or popliteal veins. The veins demonstrate normal color flow, are normally compressible, with normal phasic flow and/or augmentation response. Left superficial veins: Unremarkable. No thrombus in the visualized left great saphenous vein. Soft tissues: Soft tissue edema. No popliteal cyst. IMPRESSION: No deep venous thrombosis identified in either lower extremity. Electronically signed by: Chriss Muñoz M.D. 04/07/23 01:57 AM
[2023-04-07] MEDS ORDERED: MoRPHine SULFATE 4 MG/ML 1 ML CARP\\VIAL IV STA (04:40)
[2023-04-07 06:03] LABS: Basophils # (auto) 0.03 K/uL (0.00-0.20); Basophils % (auto) 0.3 %; Eosinophils # (auto) 0.09 K/uL (0.00-0.50); Eosinophils % (auto) 0.8 %; Hematocrit (blood only) 22.6 % (37.0-47.0); Hemoglobin 7.1 g/dl (12.0-16.0); Immature Granulocytes # (auto) 0.17 K/uL (0.01-0.20); Immature Granulocytes % (auto) 1.5 %; Lymphocytes # (auto) 1.92 K/uL (1.20-3.40); Lymphocytes % (auto) 17.1 %; Mean Corpuscular Hemoglobin 24.1 pg (25.0-34.0); Mean Corpuscular Hgb Conc 31.4 g/dL (32.0-36.0); Mean Corpuscular Volume 76.6 fL (80.0-100.0); Monocytes # (auto) 1.02 K/uL (0.11-0.59); Monocytes % (auto) 9.1 %; Neutrophils # (auto) 8.03 K/uL (1.40-6.50); Neutrophils % (auto) 71.2 %; Platelet Count 438 K/uL (130-400); RDW Coefficient of Variation 15.1 % (11.5-14.5); Red Blood Count 2.95 M/uL (4.20-5.40); White Blood Count 11.26 K/ul (4.8-10.8)
[2023-04-07] MEDS: LEVOTHYROXINE SODIUM 50 MCG TABLET PO SCH (06:13)
[2023-04-07 06:14] LABS: Bilirubin,Total 0.3 mg/dl (0.2-1.0); Calcium 8.2 mg/dl (8.6-10.3); Magnesium 1.6 mg/dl (1.7-2.4); Potassium 3.8 mmol/L (3.5-5.1)
[2023-04-07 06:20] LABS: BUN Creatinine Ratio 12.9 (10-20); Creatinine Clr Calc Pharmacy 137.1 ml/min; Est GFR (African American) 133.8 ml/min; Est GFR (Non-African American) 115.5 ml/min; Total Protein 6.4 gm/dl (6.0-8.3)
[2023-04-07 06:50] LABS: Folate (Folic Acid),Ser orPlas > 22.30 ng/ml (>5.38)
[2023-04-07 06:51] LABS: Vitamin B12 230 pg/ml (180-914)
[2023-04-07 06:53] LABS: RBC Morphology Unremarkable
[2023-04-07 06:55] LABS: Troponin I High Sensitivity 7.9 pg/ml (0-14)
[2023-04-07 07:02] LABS: Thyroid Stimulating Hormone 2.668 uIu/ml (0.300-4.500)
--- NOTE | 2023-04-07 07:43 | Ultrasound Report ---
ABDOMINAL ULTRASOUND, RIGHT UPPER QUADRANT HISTORY: Right upper quadrant pain.. COMPARISON: None. FINDINGS: Pancreas: The pancreas demonstrates a normal echotexture. Liver: 20 cm in length. No hepatic masses. Gallbladder: The gallbladder is surgically absent. CBD: 4 mm. Right kidney: No hydronephrosis. IMPRESSION: 1. Prior cholecystectomy. 2. Mild hepatomegaly. ACT 112: Negative or not required by law. Electronically signed by: Danis Limon M.D. 04/07/2023 7:41 AM
[2023-04-07] MEDS: MAGNESIUM SULFATE / D5W 1 GM/100 ML BAG IV SCH ×2 (09:18→11:38)
[2023-04-07] MEDS: FUROSEMIDE 40 MG/4 ML VIAL IV SCH (09:19)
[2023-04-07] MEDS: LORATADINE 10 MG TAB PO SCH (09:20)
[2023-04-07] MEDS: PANTOprazole 40 MG TAB PO SCH (09:20)
[2023-04-07] MEDS: PRENATAL VITAMIN 1 TAB PO SCH (09:20)
--- NOTE | 2023-04-07 10:33 | Obstetrical Progress Note ---
Date of Service April 07, 2023 Subjective Ambulation: ambulating normally Voiding: no voiding problems Passing Gas:: Yes Diet Tolerance:: regular diet Lochia:: Moderate Feeding Type:: breast feeding Results & Data Vital Signs (Past 12 Hours) Vital Signs Temp Pulse Pulse Resp BP BP Pulse Ox 04/07/23 04:33 146/84 H 04/07/23 02:39 37.0 C 98 H 16 157/90 H 95 04/07/23 02:15 102 H 04/07/23 01:40 165/93 H 04/07/23 00:30 157/89 H 04/07/23 00:26 04/06/23 23:19 37.3 C 96 H 16 152/93 H 99 O2 Del Method 04/07/23 04:33 04/07/23 02:39 Room Air 04/07/23 02:15 04/07/23 01:40 04/07/23 00:30 04/07/23 00:26 Room Air 04/06/23 23:19 Room Air
--- NOTE | 2023-04-07 10:43 | Obstetrical Progress Note ---
Date of Service April 07, 2023 Assessment & Plan (1) Severe pre-eclampsia with complication: Plan: Lynn is a 32-year-old approximately 6 days status post section. Patient admitted for mildly elevated troponins, pleural effusions and signi ficant worsening edema. Troponins have trended back to normal. Patient is reporting significant diuresis. blood pressures have noted to be labile with recurrent severe range blood pressures noted. Preeclampsia labs within normal range. Echo showed normal ejection fraction. The noted findings and symptoms are likely related to an exacerbation of severe preeclampsia. A peripartum cardiomyopathy is possible but with lab/imaging findings and improvements noted it is unlikely. Other nonobstetric cardiac abnormalities possible and would need to be determined by cardiology. Recommend continued blood pressure management with labetalol with increasing dosing as needed. Blood pressure goal range of less than 160/110 recommended. Recommend continuing magnesium for 24 hours at 2 grams per hour with a continuous drip. incision is healing appropriately and no concerns on exam today. bleeding is within normal range no concerns based on evaluation. Will defer cardiac care to primary team and cardiology. Please let us know if you have any additional concerns or questions. Will continue to follow Admission and Anticipated Discharge Date Admission Date: April 06, 2023 Subjective Lynn is a 32-year-old who is approximately 6 days status post delivery. complicated by severe preeclampsia and completed 24-hour magnesium course. Patient presented to the ED with complaints including shortness of breath, chest pain and worsening swelling. Troponins were noted to be mildly elevated and CT scan was notable for trace pleural effusions. Preeclampsia labs were all within normal range. Patient reports this morning that she has noted significant improvement of symptoms. Swelling has markedly improved per patient report. A echocardiogram is pending from this morning however echo from yesterday showed a normal ejection fraction. Patient is denying any incision related concerns. Reporting normal post bleeding. Physical Exam Gastrointestinal (Abdomen): Incision clean, dry and intact. Incision appears to be healing well without any concerns for infection Results & Data Vital Signs (Past 12 Hours) Vital Signs Temp Pulse Pulse Resp BP BP Pulse Ox 04/07/23 04:33 146/84 H 04/07/23 02:39 37.0 C 98 H 16 157/90 H 95 04/07/23 02:15 102 H 01/07/24 01:40 165/93 H 04/07/23 00:30 157/89 H 04/07/23 00:26 04/06/23 23:19 37.3 C 96 H 16 152/93 H 99 O2 Del Method 04/07/23 04:33 04/07/23 02:39 Room Air 04/07/23 02:15 04/07/23 01:40 04/07/23 00:30 04/07/23 00:26 Room Air 04/06/23 23:19 Room Air PG Care Time/CCT Total # of Minutes Spent Total Time Spent with Patient: Total time spent is greater than 50% in coordination of care (as documented) at patient's floor/unit and/or counseling patient: Coding Level of Care Code 91252 SUB INP/OBS CARE 2/35MIN Diagnoses Severe pre-eclampsia with complication O14.15
[2023-04-07] MEDS ORDERED: POTASSIUM CHLORIDE CRTAB 20 MEQ TABCR PO STA (10:57)
--- NOTE | 2023-04-07 11:08 | Cardiology Consultation ---
Date of Consultation April 07, 2023 Assessment & Plan (1) Pre-eclampsia, severe: 32-year-old female, status post recent section on 04/01/2023 having presented with severe preeclampsia. Patient had been discharged on labetalol 200 mg twice daily, and her blood pressures have been much improved postdelivery per review of her vital signs from that admission. She however presented with worsening lower extremity edema, shortness of breath, and elevated blood pressure. CT of the chest revealed small pleural effusions. Blood pressure improved having received 2 doses of IV labetalol, and then oral labetalol that followed. She just received her initial dose of furosemide IV about 2 hours ago and is already voiding significantly. Urinalysis suggest possible superimposed urinary tract infection she did have a Yao catheter during her recent hospital stay. She had developed SARS-CoV-2 on 03/24/2024. Echocardiogram images reviewed independently. Additional images obtained today for further assessment of the right ventricle with findings of normal RV chamber size and systolic function. The findings of grade II diastolic dysfunction and elevated right heart/pulmonary pressures are likely reflective of her systemic hypertension and volume overload state. At present we will continue with plan for furosemide 40 mg IV daily. I have ordered supplementary potassium. Since she is faith to furosemide, it is likely most prudent to observe her after this initial dose, and with noted clinical improvement already, will hold off on a second dose for now but she should remain in the hospital until blood pressure and volume status is optimized. Questions answered to patient and her 's satisfaction. I am optimistic that her blood pressure will improve as she moves further away from her delivery. But she has been counseled that her development of related hypertension does increase her chance of developing future high blood pressure issues which would need to be followed closely as an outpatient moving forward. I spent a total of 65 minutes on the date of service in preparation, delivery, and documentation of the care provided to this patient, excluding any time spent in the performance of separately billed services. History of Present Illness Attending Physician: Mounika Wagner MD History of Present Illness Lynn Holder is a 32-year-old female seen in cardiology consultation per the request of Dr. Calero for the evaluation of hypertension, lower extremity edema, shortness of breath, and abnormal findings on echocardiogram. The patient is seen in room 461-2. She is accompanied by her , John and her , Hilario. The patient's recent history dates back to early March,. She had been followed closely by [facility] and her third trimester of . Blood pressure on serial outpatient visits was within normal limits. On 03/24/2023 the patient began feeling ill and was found to have SARS-CoV-2. Over the next week she developed progressive lower extremity and pedal edema. She did not quite feel right. She checked her blood pressure with her [id number]'s home blood pressure cuff and found that her systolic blood pressure was in the 160s. She was admitted to the [facility] on 03/30/2023 having presented with severe preeclampsia at 37 weeks gestation. Her blood pressure was as high as 213/107 as measured on 03/31/2023 at 12:52 AM. She received magnesium, labetalol, and a Yao catheter was placed. Patient did not progress with labor and ultimately underwent section on 04/01/2023. Per review of her chart, her blood pressure improved postdelivery. She was discharged on 04/03/2023 on labetalol 200 mg twice daily. Over the next few days she felt ongoing and worsening pedal edema,shortness of breath, and developed right rib pain prompting presentation to the emergency department yesterday 04/06/2023. Her blood pressure at the time of presentation on 04/06/2023 was initially 190/97 with multiple readings of systolic blood pressures in the 160s to 170s. She received 10 mg of IV labetalol x 2 doses in the emergency department, and has since received labetalol 200 mg by mouth 2 times per day. She received an initial dose of furosemide 40 mg this morning at 9:19 AM. She is currently receiving a magnesium sulfate infusion of 1 g. Her most recent blood pressure measurement was 146/84. At present she is feeling progressively improved. She states that her feet are still swollen but she feels like she can finally move her toes again. She denies chest discomfort or inappropriate rib/abdominal pain in the setting of recovering from her . Telemetry reveals sinus rhythm in the 90s to low 100s. Her past medical history is otherwise notable for hypothyroidism. Family history: Denies family history of heart disease Allergies Allergy/AdvReac Type Severity Reaction Status Date / Time No Known Allergies Allergy Verified 03/27/23 16:08 Home Medications Medication Instructions Recorded Confirmed Type docosahexaenoic acid 200 mg 1 mg PO DAILY 01/31/22 04/06/23 History capsule ( DHA) loratadine 10 mg tablet (Claritin) 10 mg PO DAILY 01/31/22 04/06/23 History omeprazole 20 mg capsule,delayed 20 mg PO DAILY 01/31/22 04/06/23 History release ibuprofen 600 mg tablet 600 mg PO Q6H PRN pain #60 tabs 04/03/23 04/06/23 Rx labetalol 200 mg tablet 200 mg PO BID #60 tabs 04/03/23 04/06/23 Rx levothyroxine 50 mcg tablet 50 mcg PO UD 04/06/23 04/06/23 History Patient History Medical History Hypothyroidism affecting Hypothyroidism affecting in first trimester Abnormal thyroid blood test ASCUS with positive high risk HPV cervical Eczema Chicken pox Surgical History S/P tonsillectomy S/P cholecystectomy Family History Aunt Breast cancer Maternal Great Aunt Grandfather (Paternal) Colorectal cancer Great Great Grandfather Father Diabetes Sister Gestational diabetes Other Hypercholesteremia Hypertension Kidney stone Ovarian cyst PCOS (polycystic ovarian syndrome) Thyroid disease Denies family history of Ovarian cancer Social History Smoking Status: Never smoker Do You Dip or Chew Tobacco: No; Hx Alcohol Use: Yes Hx Substance Use: No Preferred Language: Occitan Communication Ability: Effective Color Room Attendant Required: No Beliefs That Will Affect Care: None marital status: marital status details: John Holder (33) [phone] Current Living Situation: Family Current Living Situation Comment: lives with spouse, 2 dogs current occupational status: employed 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 Other Information That Helps Us Care for You: No Feels Safe at Home: Yes Safety Concerns: Feels Safe At This Time Assistive Devices: None Review of Systems Review of Systems: All systems reviewed & are unremarkable except as noted in HPI & below Physical Exam Constitutional: WD/WN, vitals as above no acute distress Eyes: PERRL, conjunctivae normal, anicteric sclerae Cardiovascular: Rate/Rhythm: regular rhythm Heart Sounds: no murmur Vessels: no JVD Extremities: + edema (1-2+ bilateral lower extremity and pedal edema to just below the knees) Gastrointestinal (Abdomen): Percussion/Palpation: abdomen nontender Neurologic: PERRL, EOMI, accommodation nl, no face palsy, no dysarthria Psychiatric: A+Ox3, euthymic affect Results & Data Vital Signs (Past 12 Hours) Vital Signs Temp Pulse Pulse Resp BP BP Pulse Ox 04/07/23 04:33 146/84 H 04/07/23 02:39 37.0 C 98 H 16 157/90 H 95 04/07/23 02:15 102 H 04/07/23 01:40 165/93 H 04/07/23 00:30 157/89 H 04/07/23 00:26 04/06/23 23:19 37.3 C 96 H 16 152/93 H 99 O2 Del Method 04/07/23 04:33 04/07/23 02:39 Room Air 04/07/23 02:15 04/07/23 01:40 04/07/23 00:30 04/07/23 00:26 Room Air 04/06/23 23:19 Room Air Laboratory Results Cardiac Enzymes 04/06/23 04/06/23 04/07/23 Range/Units 15:25 17:35 05:16 AST 13 10 L (13-39) U/L Troponin I High Sens 18.0 H 13.2 D 7.9 D (0-14) pg/ml B-Natriuretic Peptide 79 (0-100) pg/ml Coagulation 04/06/23 Range/Units 15:25 PT 10.9 (9.0-12.0) Seconds B-Natriuretic Peptide 79 (0-100) pg/ml CBC 04/06/23 04/07/23 Range/Units 15:25 05:16 WBC 9.61 11.26 H (4.8-10.8) K/ul RBC 3.16 L 2.95 L (4.20-5.40) M/uL Hgb 7.5 L 7.1 L (12.0-16.0) g/dl Hct 24.5 L 22.6 L (37.0-47.0) % Plt Count 377 438 H (130-400) K/uL Neut # (Auto) 7.58 H 8.03 H (1.40-6.50) K/uL Lymph # (Auto) 1.02 L 1.92 (1.20-3.40) K/uL [place] # (Auto) 0.75 H 1.02 H (0.11-0.59) K/uL Eos # (Auto) 0.12 0.09 (0.00-0.50) K/uL Baso # (Auto) 0.01 0.03 (0.00-0.20) K/uL Comprehensive Metabolic Panel 04/06/23 04/07/23 Range/Units 15:25 05:16 Sodium 137 137 (136-145) mmol/L Potassium 4.2 3.8 (3.5-5.1) mmol/L Chloride 105 102 (98-107) mmol/L Carbon Dioxide 22 22 (21-32) mmol/L BUN 9 9 (6-23) mg/dl Creatinine 0.78 0.70 (0.6-1.2) mg/dl Glucose 90 78 (70-99(Fasting)) mg/dl Calcium 8.7 8.2 L (8.6-10.3) mg/dl Direct Bilirubin 0.0 (0-0.2) mg/dl AST 13 10 L (13-39) U/L ALT 10 9 (7-52) U/L Alkaline Phosphatase 128 H 108 H (34-104) U/L Total Protein 7.2 6.4 (6.0-8.3) gm/dl Albumin 3.3 L 3.0 L (3.4-5.0) gm/dl Intake and Output 04/06/23 04/07/23 04/07/23 22:59 06:59 14:59 Intake Total 50 / 50 Output Total 1830 / 3030 1200 / 3030 Balance -1830 / -2980 -1150 / -2980 Intake: IV 50 / 50 cefTRIAXone SODIUM 2,000 mg In 50 / 50 Dextrose 5 % Mini-B 50 ml @ 100 mls/hr IV Q24H [facility] Rx#: [id number] Output: Urine 1830 / 3030 1200 / 3030 Other: Weight 106 kg 101 kg weight Measurement Method [facility] proBNP level normal at 79 PG per mL Diagnostic Findings EKG performed and interpreted independently: Sinus tachycardia 103 bpm, possible left atrial lodgment. No significant repolarization abnormalities. Transthoracic echocardiogram performed 04/06/2023, report reviewed, and images reviewed independently: Normal left ventricular chamber size with mild concentric left ventricular hypertrophy, normal left ventricular wall motion, LVEF in the range of 55 to 60%. Mild left atrial enlargement, mild mitral regurgitation. The pulmonary artery systolic pressure is elevated to a mild to moderate degree, 54 mmHg. The right ventricle is not well-visualized, but mild right ventricular chamber enlargement suggested on limited views with normal RV systolic function. Findings compatible with grade II diastolic dysfunction Repeat limited, goal-directed echocardiogram performed on 04/07/2023, images reviewed independently: Agitated saline contrast administered which improved delineation of the endocardial border of the right ventricle. Right ventricular chamber size and systolic function is felt to be within normal limits. With the injection of agitated saline contrast, bubbles are noted to appear in the left atrium late, consistent with small/mild extracardiac shunt, without suggestion of interatrial shunt. CT angiogram, radiology report 04/06/2023 describes no pulmonary emboli, trace bilateral pleural effusions Hepatic ultrasound notable for prior cholecystectomy, mild hepatomegaly Venous duplex negative for DVT of the bilateral lower extremities (1) Pre-eclampsia, severe Trimester: third trimester Qualified Code(s): O14.13 - Severe pre-eclampsia, third trimester
--- NOTE | 2023-04-07 16:00 | Hospitalist Progress Note ---
Date of Service April 07, 2023 Assessment & Plan (1) Bilateral edema of lower extremity: Plan: 32-year-old female with past med history significant for GERD, obesity who had 5 days ago comes because of right-sided rib pain and also worsening lower extremity edema. Patient says she was diagnosed with blood pressure at 37th week of . She had edema in lower extremity but that got significantly worse last 5 days. And today also developed right-sided rib pain and the pain is worse when taking deep breath. Also had a temperature of 100.3 degrees at home. No runny nose. Has some cough. No nausea. Has some pain at . Normal bowel and bladder movements. Blood pressure was high when she came to the ER and received couple of doses of IV labetalol. #Severe preeclampsia #Bilateral lower extremity edema Troponin first set 18 repeat is 13.2. Will follow serial cardiac enzymes CTA chest no PE; Lower extremity Dopplers negative for DVT Repeat Echo. without right ventricular dysfunction or PHTN, likely initally read 2/2 image aquisition Cardiology following -Continue PO home labetalol -Continue daily IV lasix OBGYN following -Continue magnesium drip x 24 hours # s/p # bleeding #Acute blood loss anemia, 2/2 recent obstetrical procedure/post delivery vaginal bleeding -Trend CBC, transfuse < 7.0 -OBGYN without concerns for overt losses at this time -Scheduled tylenol, oxy prn moderate +morphine breakthrough #UTI Rocephin Follow cultures #Hypothyroidism On Synthyroid #COVID -COVID + on 03/31, no symptoms enhanced precautions CTM #GERD Omeprazole DVT prophylaxis SCDs for now Disposition Telemetry floor Full code Admission and Anticipated Discharge Date Admission Date: April 06, 2023 Subjective Patient evaluated at bedside with family present. She reports feeling much improved overall, noting that the swelling in her legs has improved to a degree where she can wiggle her toes and bend her knees She denies any headache, SOB, chest pain, or other acute concerns Physical Exam Constitutional: WD/WN, vitals as above Respiratory: normal respiratory effort, lungs clear to auscultation Cardiovascular: RRR, 2-3+ edema BLE Results & Data Results & Data Vital Signs (Past 12 Hours) Vital Signs Temp Pulse Resp BP Pulse Ox O2 Del Method 04/07/23 12:02 36.8 C 94 H 20 138/77 97 Room Air 04/07/23 04:33 146/84 H Laboratory Results Short CBC 04/07/23 Range/Units 05:16 WBC 11.26 H (4.8-10.8) K/ul Hgb 7.1 L (12.0-16.0) g/dl Hct 22.6 L (37.0-47.0) % Plt Count 438 H (130-400) K/uL BMP 04/07/23 05:16 Sodium 137 Potassium 3.8 Chloride 102 Carbon Dioxide 22 BUN 9 Creatinine 0.70 Glucose 78 Calcium 8.2 L Liver Function 04/07/23 Range/Units 05:16 Total Bilirubin 0.3 (0.2-1.0) mg/dl Direct Bilirubin 0.0 (0-0.2) mg/dl AST 10 L (13-39) U/L ALT 9 (7-52) U/L Alkaline Phosphatase 108 H (34-104) U/L Albumin 3.0 L (3.4-5.0) gm/dl Urine 04/06/23 Range/Units 19:48 Urine Color Yellow Urine Appearance Clear (Clear) Urine pH 6.5 (4.5-7.5) Ur Specific [place] 1.008 (1.000-1.030) Urine Protein Negative (Negative) Urine Glucose (UA) Negative (Negative) Medications Administered Home Medications Medication Instructions Recorded Confirmed Last Taken docosahexaenoic acid 200 mg 1 mg PO DAILY 01/31/22 04/06/23 04/06/23 capsule ( DHA) loratadine 10 mg tablet (Claritin) 10 mg PO DAILY 01/31/22 04/06/23 04/06/23 omeprazole 20 mg capsule,delayed 20 mg PO DAILY 01/31/22 04/06/23 04/06/23 release ibuprofen 600 mg tablet 600 mg PO Q6H PRN pain #60 tabs 04/03/23 04/06/23 Unknown labetalol 200 mg tablet 200 mg PO BID #60 tabs 04/03/23 04/06/23 04/06/23 levothyroxine 50 mcg tablet 50 mcg PO UD 04/06/23 04/06/23 04/06/23 Active Medications Generic Name Dose Route Start Last Admin Trade Name Freq PRN Reason Stop Dose Admin Acetaminophen 650 mg 04/07/23 16:30 04/07/23 16:43 Acetaminophen 325 Mg Tab PO 05/07/23 16:29 650 mg Q6H [facility] Administration Furosemide 40 mg 04/07/23 09:00 04/07/23 09:19 Furosemide 40 Mg/4 Ml Vial IV 05/07/23 08:59 40 mg DAILY [facility] Administration Ceftriaxone Sodium 2,000 mg/ 50 mls @ 100 mls/hr 04/07/23 01:00 04/07/23 03:17 Dextrose IV 04/17/23 00:59 Infused Q24H [facility] Infusion Protocol Labetalol HCl 200 mg 04/06/23 23:10 04/07/23 09:20 Labetalol Hcl 200 Mg Tab PO 05/06/23 23:09 200 mg BID [facility]WIN Administration Levothyroxine Sodium 50 mcg 04/07/23 06:30 04/07/23 06:13 Levothyroxine Sodium 50 Mcg Tablet PO 05/07/23 06:29 50 mcg DAILYBB [facility] Administration Loratadine 10 mg 04/07/23 09:00 04/07/23 09:20 Loratadine 10 Mg Tab PO 05/07/23 08:59 10 mg DAILY [facility]WIN Administration Oxycodone HCl 5 mg 04/07/23 16:17 04/07/23 16:44 Oxycodone Hcl Ir 5 Mg Tab (Immediate Release) PO 04/21/23 16:16 5 mg Q6H PRN Administration Pain Pantoprazole Sodium 40 mg 04/07/23 09:00 04/07/23 09:20 Pantoprazole 40 Mg Tab PO 05/07/23 08:59 40 mg DAILY [facility] Administration Prenat Multivit/Principal Network Architect/Iron/Folic Ac 1 tab 04/07/23 09:00 04/07/23 09:20 Vitamin 1 Tab PO 05/07/23 08:59 1 tab DAILY [facility] Administration
[2023-04-07] MEDS ORDERED: MoRPHine SULFATE 4 MG/ML 1 ML CARP\\VIAL IV PRN (16:19)
[2023-04-07] MEDS: ACETAMINOPHEN 325 MG TAB PO SCH ×2 (16:43→22:57)
[2023-04-07] MEDS: oxyCODONE HCL IR 5 MG TAB (IMMEDIATE RELEASE) PO PRN ×2 (16:44→22:57)
[2023-04-07] MEDS ORDERED: BENZOCAINE 20% SPRY 85 APPLN/85 GM CAN EXT PRN (16:56)
[2023-04-07] MEDS ORDERED: MAGNESIUM SULFATE / WTR 40 GM/1,000 ML BAG IV SCH (17:15)
--- NOTE | 2023-04-07 21:05 | Electrocardiogram Report ---
Test Reason : Blood Pressure : / mmHG Vent. Rate : 103 BPM Atrial Rate : 103 BPM P-R Int : 130 ms QRS Dur : 074 ms QT Int : 348 ms P-R-T Axes : 048 039 037 degrees QTc Int : 455 ms Sinus tachycardia Possible Left atrial enlargement Borderline ECG No previous ECGs available Confirmed by Carter Daivs ([id number]) on 04/07/2023 9:05:21 PM Referred By: REFERRED SELF Confirmed By:Carter Davis
[2023-04-08] MEDS: cefTRIAXone SODIUM 2,000 MG in DEXTROSE 5 % MINI-B 50 ML IV SCH (00:40)
[2023-04-08] MEDS: ACETAMINOPHEN 325 MG TAB PO SCH ×4 (04:36→23:02)
[2023-04-08] MEDS: LEVOTHYROXINE SODIUM 50 MCG TABLET PO SCH (04:37)
[2023-04-08] MEDS: oxyCODONE HCL IR 5 MG TAB (IMMEDIATE RELEASE) PO PRN (04:37)
[2023-04-08 06:53] LABS: Albumin Globulin Ratio 0.8 (0.9-2); Albumin Level 2.9 gm/dl (3.4-5.0); Bilirubin,Total 0.2 mg/dl (0.2-1.0); Calcium 8.1 mg/dl (8.6-10.3); Creatinine Clr Calc Pharmacy 131.5 ml/min; Est GFR (African American) 127.2 ml/min; Est GFR (Non-African American) 109.7 ml/min; Globulin 3.5 gm/dl (2.5-4.0); Magnesium 4.5 mg/dl (1.7-2.4); Phosphorus 5.7 mg/dl (2.5-4.9); Total Protein 6.4 gm/dl (6.0-8.3)
[2023-04-08 07:00] LABS: Hemoglobin 6.9 g/dl (12.0-16.0); Mean Corpuscular Hemoglobin 23.8 pg (25.0-34.0); Mean Corpuscular Hgb Conc 31.4 g/dL (32.0-36.0); Mean Corpuscular Volume 75.9 fL (80.0-100.0); Mean Platelet Volume 8.7 fL (9.4-12.4); Platelet Count 438 K/uL (130-400); RDW Coefficient of Variation 15.2 % (11.5-14.5); RDW Standard Deviation 42.1 fL (36.4-46.3); White Blood Count 10.91 K/ul (4.8-10.8)
--- NOTE | 2023-04-08 07:27 | Obstetrical Progress Note ---
Date of Service April 08, 2023 Assessment & Plan (1) Severe pre-eclampsia with complication: Plan: Lynn is a 32-year-old day 7 status post section with complicated by severe preeclampsia with exacerbation of preeclampsia. Patient appears to be clinically improving. Recommend discontinuation of the magnesium if being used for seizure prophylaxis secondary to severe preeclampsia. If magnesium being used for other concerns/issues can continue per primary team's recommendations. Blood pressures are labile but are improving and would recommend continuation of labetalol. bleeding within range of expectation patient aware of bleeding precautions. Incision appears to be healing well and patient is aware of wound care recommendations. Anemia noted however patient asymptomatic at present. Can consider offering blood transfusion due to significantly low H/H although not absolutely required. Recommend a 1 week clinic follow-up visit in OB which I will arrange scheduling. Admission and Anticipated Discharge Date Admission Date: April 06, 2023 Subjective No acute events overnight. Reports symptomatic improvement throughout the past 24 hours. Denying any preeclampsia symptoms at present. Blood pressures are labile but have improved since admission. Preeclampsia labs have been within normal range. Patient denies any bleeding concerns. H/H at 6.9/22. Patient denies any anemia symptoms including lightheadedness/dizziness. Physical Exam Gastrointestinal (Abdomen): Inspection/Auscultation: abdomen normal to inspection Percussion/Palpation: abdomen soft; abdomen nontender, no guarding and abdomen not rigid Incision clean, dry and intact. Results & Data Vital Signs (Past 12 Hours) Vital Signs Temp Pulse Pulse Resp BP Pulse Ox O2 Del Method 04/08/23 03:42 96 H 04/08/23 03:00 37.0 C 96 H 18 126/76 96 Room Air 04/07/23 23:04 37.3 C 96 H 18 136/85 96 Room Air 04/07/23 21:00 Room Air PG Care Time/CCT Total # of Minutes Spent Total Time Spent with Patient: Total time spent is greater than 50% in coordination of care (as documented) at patient's floor/unit and/or counseling patient: Coding Level of Care Code 65891 SUB INP/OBS CARE 1/25MIN Diagnoses Severe pre-eclampsia with complication O14.15
[2023-04-08] MEDS ORDERED: POTASSIUM CHLORIDE CRTAB 20 MEQ TABCR PO STA (07:55)
[2023-04-08] MEDS ORDERED: SODIUM CHLORIDE 0.9% 250 ML IV PRN (08:06)
[2023-04-08 08:44] LABS: Hematocrit (blood only) 22.6 % (37.0-47.0); Hemoglobin 7.2 g/dl (12.0-16.0)
[2023-04-08] MEDS: FUROSEMIDE 40 MG/4 ML VIAL IV SCH (09:01)
[2023-04-08] MEDS: LABETALOL HCL 200 MG TAB PO SCH ×2 (09:01→20:32)
[2023-04-08] MEDS: LORATADINE 10 MG TAB PO SCH (09:02)
[2023-04-08] MEDS: PRENATAL VITAMIN 1 TAB PO SCH (09:02)
[2023-04-08] MEDS: PANTOprazole 40 MG TAB PO SCH (09:03)
--- NOTE | 2023-04-08 10:37 | Cardiology Progress Note ---
Date of Service April 08, 2023 Assessment & Plan (1) Pre-eclampsia, severe: Plan: 32-year-old female, status post recent section on 04/01/2023 having presented with severe preeclampsia. * Continue labetalol 200 mg twice daily * Continue furosemide 40 mg IV daily with noted 3 L of urine output after initial dose on 04/07/2023. * Potassium chloride 20 mill equivalents p.o. ordered this morning. Magnesium discontinued. (2) Anemia: Plan: * Hemoglobin down to 6.9 this morning at 610, was repeated at 8:20 AM and was 7.2. Continue observation.Continue vitamin which has iron sup plement. * Hold off on transfusion for now, and continue to monitor. OB / INDEPENDENT FREIGHT AGENT input noted and appreciated. Admission and Anticipated Discharge Date Admission Date: April 06, 2023 Subjective Patient seen in cardiology follow-up. is at the bedside. Overall she is feeling slightly improved. Blood pressure has certainly trended toward improvement as has her heart rate. Telemetry reveals sinus rhythm in the 70s. No arrhythmias. Physical Exam Constitutional: WD/WN, vitals as above no acute distress Eyes: PERRL, conjunctivae normal, anicteric sclerae Cardiovascular: Rate/Rhythm: regular rhythm Heart Sounds: no murmur Vessels: no JVD Extremities: + edema (1-2+ bilateral lower extremity and pedal edema to just below the knees) Gastrointestinal (Abdomen): Percussion/Palpation: abdomen nontender Neurologic: PERRL, EOMI, accommodation nl, no face palsy, no dysarthria Psychiatric: A+Ox3, euthymic affect Results & Data Vital Signs (Past 12 Hours) Vital Signs Temp Pulse Pulse Resp BP BP Pulse Ox 04/08/23 08:15 36.6 C 82 19 135/82 97 04/08/23 03:42 96 H 04/08/23 03:00 37.0 C 96 H 18 126/76 96 04/07/23 23:04 37.3 C 96 H 18 136/85 96 O2 Del Method 04/08/23 08:15 Room Air 04/08/23 03:42 04/08/23 03:00 Room Air 04/07/23 23:04 Room Air Laboratory Results Cardiac Enzymes 04/07/23 04/08/23 Range/Units 10:50 06:10 AST 13 (13-39) U/L Troponin I High Sens 5.9 (0-14) pg/ml CBC 04/08/23 04/08/23 Range/Units 06:10 08:20 WBC 10.91 H (4.8-10.8) K/ul RBC 2.90 L (4.20-5.40) M/uL Hgb 6.9 L* 7.2 L (12.0-16.0) g/dl Hct 22.0 L 22.6 L (37.0-47.0) % Plt Count 438 H (130-400) K/uL Comprehensive Metabolic Panel 04/08/23 Range/Units 06:10 Sodium 136 (136-145) mmol/L Potassium 4.0 (3.5-5.1) mmol/L Chloride 103 (98-107) mmol/L Carbon Dioxide 23 (21-32) mmol/L BUN 8 (6-23) mg/dl Creatinine 0.73 (0.6-1.2) mg/dl Glucose 103 H (70-99(Fasting)) mg/dl Calcium 8.1 L (8.6-10.3) mg/dl AST 13 (13-39) U/L ALT 12 (7-52) U/L Alkaline Phosphatase 103 (34-104) U/L Total Protein 6.4 (6.0-8.3) gm/dl Albumin 2.9 L (3.4-5.0) gm/dl Intake and Output 04/07/23 04/08/23 04/08/23 22:59 06:59 14:59 Intake Total 480 / 970 290 / 970 789 / 789 Output Total 2400 / 3050 650 / 3050 1000 / 1000 Balance -1920 / -2080 -360 / -2080 -211 / -211 Intake: IV 50 / 250 669 / 669 Magnesium Sulfate / Wtr 40 gm 669 / 669 In 1,000 ml @ 50 mls/hr IV . Q20H [facility] Rx#:[id number] cefTRIAXone SODIUM 2,000 mg In 50 / 50 Dextrose 5 % Mini-B 50 ml @ 100 mls/hr IV Q24H [facility] Rx#: [id number] Oral 480 / 720 240 / 720 120 / 120 Output: Urine 2400 / 3050 650 / 3050 1000 / 1000 (1) Pre-eclampsia, severe Trimester: third trimester Qualified Code(s): O14.13 - Severe pre-eclampsia, third trimester (2) Anemia Anemia type: iron deficiency
[2023-04-08] MEDS: DOCUSATE SODIUM 100 MG CAP PO SCH ×2 (15:58→20:37)
[2023-04-08 16:16] LABS: Hematocrit (blood only) 28.3 % (37.0-47.0); Hemoglobin 8.8 g/dl (12.0-16.0)
[2023-04-08] MEDS ORDERED: DOCUSATE SODIUM 100 MG CAP PO SCH (21:00)
--- NOTE | 2023-04-08 23:20 | Hospitalist Progress Note ---
Date of Service April 08, 2023 Assessment & Plan (1) Severe pre-eclampsia with complication: (2) Bilateral edema of lower extremity: (3) Chest pain: (4) Anemia: (5) Hypertensive urgency: (6) UTI (urinary tract infection): Plan Pt is a 32yoF with PMHx significant for GERD, obesity admitted with hypertensive urgency and edema in the setting of severe preeclampsia after a c- section delivery 5 days [employer]. Preeclampsia Hypertensive urgency BP significantly elevated on admission Continue PO Labetalol Cardiology consulted-appreciate recs OB consulted- appreciate recs Bilateral lower extremity edema Echo. Normal EF of 55 to 60%. No regional wall motion abnormalities. Mild concentric left ventricle hypertrophy. Mildly dilated right ventricle with normal systolic function. Moderate pulmonary hypertension. RVSP 54 mmHg Currently on IV lasix 40mg daily, Continue Appreciate cardiology recs Elevated trop Troponin elevated and downtrended EKG with sinus tach CTA chest no PE Echo. Normal EF of 55 to 60%. No regional wall motion abnormalities. Mild concentric left ventricle hypertrophy. Mildly dilated right ventricle with normal systolic function. Moderate pulmonary hypertension. RVSP 54 mmHg Cardiology consulted, appreciate recs Right upper abdominal pain Liver enzymes wnl at this time Liver US noting mild hepatomegaly Consider CT abd/pelvis if persistent/worsening Anemia Hemoglobin dropped to 6.9 on 04/08, on repeat went back up to 7.2 w/o transfusion. Hgb 8.8 on further repeat Post-op after c section delivery Iron low at 10, pt on but consider IV supplementation in setting of concerning anemia B12 wnl Per cardiology, continue to observe. AM CBC, iron level UTI UA suggestive of infection Urine Cx with no significant growth Continue Rocephin and PO transition for 5 days if pt symptomatic Electrolyte Abnormalities Phosphorus and Magnesium elevated Mag has since been discontinued Trend with AM labs Hypothyroidism On Synthroid, continue GERD Omeprazole, continue CODE STATUS: Full code DVT prophylaxis: SCDs for now given age and anemia Diet: HH Dispo: d/c per Cardiology recs Admission and Anticipated Discharge Date Admission Date: April 06, 2023 Subjective Pt seen with and baby at bedside. States that she has not been having SOB, chest pain, palpitations or dizziness as long as she is off the magnesium. and pt requesting further information about discharge to help with coordinating care for baby's appt tomorrow. Per nursing, pt constipated and requesting medication. Review of Systems Review of Systems: All systems reviewed & are unremarkable except as noted in Subjective Physical Exam Physical Exam: General: Alert, oriented. No acute distress Skin: No noted rashes or bruises Psych: Appropriate mood and affect Neuro: No gross deficits while sitting in bed HEENT: NC/AT CV: RRR Resp: Breath sounds clear bilaterally, no increased effort of breathing. Abdomen: Soft, tender in lower abd quadrants near surgical scar Extremities: edema in lower extremities bilaterally. Results & Data Results & Data Vital Signs (Past 12 Hours) Vital Signs Temp Pulse Pulse Resp BP BP Pulse Ox 04/08/23 10:42 36.7 C 75 19 120/72 96 04/08/23 08:15 36.6 C 82 19 135/82 97 04/08/23 03:42 96 H 04/08/23 03:00 37.0 C 96 H 18 126/76 96 O2 Del Method 04/08/23 10:42 Room Air 04/08/23 08:15 Room Air 04/08/23 03:42 04/08/23 03:00 Room Air (4) Anemia Anemia type: iron deficiency
[2023-04-09] MEDS: cefTRIAXone SODIUM 2,000 MG in DEXTROSE 5 % MINI-B 50 ML IV SCH (01:40)
[2023-04-09] MEDS: ACETAMINOPHEN 325 MG TAB PO SCH ×2 (05:19→10:40)
[2023-04-09] MEDS: LEVOTHYROXINE SODIUM 50 MCG TABLET PO SCH (05:19)
--- NOTE | 2023-04-09 06:53 | Obstetrical Progress Note ---
Date of Service April 09, 2023 Assessment & Plan (1) Severe pre-eclampsia with complication: Plan Doing well. Improved. ok for d/c from ob standpoint. BPS are fairly well managed on po labetelol and that is a very appropriate for home. She r/s her appt for next Saturday. s/s of concern reviewed. Medications per primary team and will likely f/u with pcp per primary team. Likely she is gettting a bit engorged from not breast feeding. Discussed breast care. exam benign. Admission and Anticipated Discharge Date Admission Date: April 06, 2023 Subjective Patient notes she is feeling much better. Notes no s/s of pet. Notes no sob/cp. Voiding well. no n/v. Is ambulating without difficulty. She notes some breast tenderness bilaterally. Notes her milk never came in and she is bottle feeding. Physical Exam Constitutional: WD/WN, vitals as above Cardiovascular: Extremities: + edema (+1); no calf tenderness Chest (Breasts): Breast: normal inspection of breasts and normal palpation of breasts; no skin thickening and no breast mass Gastrointestinal (Abdomen): soft, nt, incision c/d/i Psychiatric: A+Ox3, euthymic affect Results & Data Vital Signs (Past 12 Hours) Vital Signs Temp Pulse Pulse Resp BP BP Pulse Ox 04/09/23 06:44 37 C 73 18 137/84 99 04/08/23 23:37 36.8 C 84 16 137/83 98 04/08/23 22:35 105 H 04/08/23 20:44 37.2 C 85 18 144/83 H 99 O2 Del Method 04/09/23 06:44 Room Air 04/08/23 23:37 Room Air 04/08/23 22:35 04/08/23 20:44 Room Air PG Care Time/CCT Total # of Minutes Spent Total Time Spent with Patient: Total time spent is greater than 50% in coordination of care (as documented) at patient's floor/unit and/or counseling patient: Coding Level of Care Code 29497 SUB INP/OBS CARE 04/25MIN Diagnoses Severe pre-eclampsia with complication O14.15
[2023-04-09] MEDS: FUROSEMIDE 40 MG/4 ML VIAL IV SCH (07:12)
[2023-04-09 08:04] LABS: Hematocrit (blood only) 27.9 % (37.0-47.0); Hemoglobin 8.8 g/dl (12.0-16.0); Mean Corpuscular Hgb Conc 31.5 g/dL (32.0-36.0); Mean Corpuscular Volume 76.2 fL (80.0-100.0); Mean Platelet Volume 8.6 fL (9.4-12.4); Nucleated RBC # (auto) 0.02 K/uL (0.00-0.12); Nucleated RBC % (auto) 0.2 %; Platelet Count 622 K/uL (130-400); RDW Coefficient of Variation 15.3 % (11.5-14.5); RDW Standard Deviation 42.5 fL (36.4-46.3); Red Blood Count 3.66 M/uL (4.20-5.40); White Blood Count 12.41 K/ul (4.8-10.8)
[2023-04-09 08:24] LABS: Albumin Globulin Ratio 0.8 (0.9-2); Albumin Level 3.5 gm/dl (3.4-5.0); Bilirubin,Total 0.2 mg/dl (0.2-1.0); Calcium 9.3 mg/dl (8.6-10.3); Creatinine Clr Calc Pharmacy 127.1 ml/min; Est GFR (African American) 123.1 ml/min; Est GFR (Non-African American) 106.2 ml/min; Globulin 4.2 gm/dl (2.5-4.0); Magnesium 2.1 mg/dl (1.7-2.4); Phosphorus 5.7 mg/dl (2.5-4.9); Total Protein 7.7 gm/dl (6.0-8.3)
[2023-04-09] MEDS: PANTOprazole 40 MG TAB PO SCH (08:39)
[2023-04-09] MEDS: LABETALOL HCL 200 MG TAB PO SCH (08:39)
[2023-04-09] MEDS: PRENATAL VITAMIN 1 TAB PO SCH (08:39)
[2023-04-09] MEDS: LORATADINE 10 MG TAB PO SCH (08:39)
[2023-04-09] MEDS: DOCUSATE SODIUM 100 MG CAP PO SCH (08:40)
[2023-04-09] MEDS ORDERED: POTASSIUM CHLORIDE CRTAB 20 MEQ TABCR PO STA (11:26)
--- NOTE | 2023-04-09 13:36 | Cardiology Progress Note ---
Date of Service April 09, 2023 Assessment & Plan (1) Pre-eclampsia, severe: Plan: 32-year-old female, status post recent section on 04/01/2023 having presented with severe preeclampsia. * Continue labetalol 200 mg twice daily * Discontinue IV furosemide 40 mg daily * Start oral furosemide 20 mg by mouth daily, to start on 01/09/24 * Potassium chloride 10 mE daily. * Stable from cardiology perspective for discharge * Pt advised to weigh herself daily , in am after voiding. * Will arrange cardiology followup. (2) Anemia: Plan: * Hgb stable at 8.8 g/dl. * Continue multivitamin. Admission and Anticipated Discharge Date Admission Date: April 06, 2023 Subjective Patient seen in cardiology follow up. Spouse and baby at the bedside. Telemetry reveals SR in the 70s. Patient states she feels well. Denies chest pain or shortness of breath. Still with pedal edema, but improved. Physical Exam Constitutional: WD/WN, vitals as above no acute distress Eyes: PERRL, conjunctivae normal, anicteric sclerae Cardiovascular: Rate/Rhythm: regular rhythm Heart Sounds: no murmur Vessels: no JVD Extremities: + edema (1+ LE edema , pedal edema , improed ) Gastrointestinal (Abdomen): Percussion/Palpation: abdomen nontender Neurologic: PERRL, EOMI, accommodation nl, no face palsy, no dysarthria Psychiatric: A+Ox3, euthymic affect Results & Data Vital Signs (Past 12 Hours) Vital Signs Temp Pulse Resp BP Pulse Ox O2 Del Method 04/09/23 12:09 36.7 C 79 20 138/82 98 Room Air 04/09/23 08:21 36.7 C 71 19 126/81 96 Room Air 04/09/23 06:44 37 C 73 18 137/84 99 Room Air Laboratory Results Cardiac Enzymes 04/09/23 Range/Units 07:41 AST 16 (13-39) U/L CBC 04/08/23 04/09/23 Range/Units 15:49 07:41 WBC 12.41 H (4.8-10.8) K/ul RBC 3.66 L (4.20-5.40) M/uL Hgb 8.8 L 8.8 L (12.0-16.0) g/dl Hct 28.3 L 27.9 L (37.0-47.0) % Plt Count 622 H (130-400) K/uL Comprehensive Metabolic Panel 04/09/23 Range/Units 07:41 Sodium 139 (136-145) mmol/L Potassium 4.0 (3.5-5.1) mmol/L Chloride 102 (98-107) mmol/L Carbon Dioxide 26 (21-32) mmol/L BUN 9 (6-23) mg/dl Creatinine 0.75 (0.6-1.2) mg/dl Glucose 80 (70-99(Fasting)) mg/dl Calcium 9.3 (8.6-10.3) mg/dl AST 16 (13-39) U/L ALT 18 (7-52) U/L Alkaline Phosphatase 123 H (34-104) U/L Total Protein 7.7 D (6.0-8.3) gm/dl Albumin 3.5 (3.4-5.0) gm/dl Intake and Output 04/08/23 04/09/23 04/09/23 22:59 06:59 14:59 Intake Total 850 / 2239 250 / 2239 Output Total 601 / 5301 1100 / 5301 1600 / 1600 Balance 249 / -3062 -850 / -3062 -1600 / -1600 Intake: IV 50 / 719 cefTRIAXone SODIUM 2,000 mg In 50 / 50 Dextrose 5 % Mini-B 50 ml @ 100 mls/hr IV Q24H [facility] Rx#: [id number] Oral 850 / 1520 200 / 1520 Output: Urine 600 / 5300 1100 / 5300 1600 / 1600 # Bowel Movements / Other: # Unmeasured Voids 2 Weight 99.7 kg Weight Measurement Method Built in [facility] (1) Pre-eclampsia, severe Trimester: third trimester Qualified Code(s): O14.13 - Severe pre-eclampsia, third trimester (2) Anemia Anemia type: iron deficiency
--- NOTE | 2023-04-09 13:38 | Discharge Summary ---
Discharge Summary Date of Service April 09, 2023 Notes For Next Care Provider Please ensure close follow up with Cardiology Please ensure close follow up with OB- pt is on multiple medications, not currently Please monitor H/H with anemia See summary below for further notes Medication Changes From Visit Continue PO labetalol 200mg BID Lasix 20mg daily with potassium chloride 10mEq daily Keflex 250mg q6h x 2 more days Oxycodone 5mg q6h prn Colace 100mg BID Continue vitamin for low iron Stop NSAID use such as home ibuprofen until Hgb recovers. Can use PRN tylenol instead. Admission HPI Per Admitting Provider 32-year-old female with past med history significant for GERD, obesity who had 5 days ago comes because of right-sided rib pain and also worsening lower extremity edema. Patient says she was diagnosed with blood pressure at 37th week of . She had edema in lower extremity but that got significantly worse last 5 days. And today also developed right-sided rib pain and the pain is worse when taking deep breath. Also had a temperature of 100.3 degrees at home. No runny nose. Has some cough. No nausea. Has some pain at . Normal bowel and bladder movements. Blood pressure was high when she came to the ER and received couple of doses of IV labetalol. Past medical history. As mentioned above Past surgical history. Bowel Surgery. Dental surgery. Tonsillectomy. C- section. Social history. No smoking. Alcohol yes per epic. No drug use. Family history. Mother has allergies. Psoriasis. Father has diabetes. Hypertension. Sister has PCOS. Maternal cousin had breast cancer. Maternal grandfather had prostate cancer. Admission Exam Per Admitting Provider General- Not in distress Head- atraumatic Eyes- PERRL. ENT- oropharynx clear Neck- supple, no JVD. Lungs- clear to auscultation no wheezing or crackles Heart- regular rhythm; no murmur, no gallop. Abdomen- normal bowel sounds, soft, diffuse tender no distension Extremities- b/l lower extremity gross edema present. no erythema seen Neuro- alert, oriented x 3; PERRL, no facial palsy; no dysarthria; moves extremities Principal Dx & Hospital Course #1 = Principal Diagnosis (1) Severe pre-eclampsia with complication: (2) Bilateral edema of lower extremity: (3) Chest pain: (4) Anemia: (5) Hypertensive urgency: (6) UTI (urinary tract infection): Plan Pt is a 32yoF with PMHx significant for GERD, obesity admitted with hypertensive urgency and edema in the setting of severe preeclampsia after a c- section delivery 5 days [employer]. Preeclampsia Hypertensive urgency BP significantly elevated on admission, 190/97 Treated with IV labetatol and transitioned to PO labetalol 200mg BID on discharge per Cardiology recs. Was on magnesium drip per Obstetrics for at least 24hrs for seizure prevention. Please ensure close PCP, OB and Cardiology followup for continued BP and preeclampsia monitoring after discharge. Bilateral lower extremity edema Pleural Effusions Pt presented with significant lower extremity edema Chest XRAY had no acute findings Chest CTA showed no PE but did note trace pleural effusions Echo obtained on 04/06 and noted Normal EF of 55 to 60%. No regional wall motion abnormalities. Mild concentric left ventricle hypertrophy. Mildly dilated right ventricle with normal systolic function. Moderate pulmonary hypertension. RVSP 54 mmHg. Followup Echo with bubble study on 04/07 noted small/mild extracardiac R to L shunt rather than interarterial shunt. Cardiology was following, diuresed with IV Lasix 40mg daily and transitioned to PO Lasix 20mg daily with KCl 10mEq daily. Cardiology noted "The findings of grade II diastolic dysfunction and elevated right heart/pulmonary pressures are likely reflective of her systemic hypertension and volume overload state." Please ensure close Cardiology follow up after discharge. Elevated trop Hs-Troponin elevated and downtrended Went from 18 to 13.2 to 7.9 to 5.9 EKG with sinus tach CTA chest no PE Echo findings as noted above Cardiology consulted as noted above, doubt ACS Right upper abdominal pain Liver enzymes remained within normal limits Liver US noting mild hepatomegaly Remained stable If persistent/worsening, consider outpatient CT abd/pelvis PCP follow up Anemia Hemoglobin dropped to 6.9 on 04/08, on repeat a few hours later went back up to 7.2 w/o transfusion. In setting of pt being post-op after c section delivery and low iron levels at 10 Pt on which has iron Repeat iron on day of discharge is 31, hgb 8.8 B12 wnl Per cardiology, continue to observe. Did not require or receive blood transfusions while hospitalized. PCP follow up, closely monitor H/H. UTI UA suggestive of infection Urine Cx with no significant growth Treated with Rocephin x 3 days and discharged with PO Keflex for a total of 5 days of treatment. Electrolyte Abnormalities Hyperphosphatemia -Phosphorus levels elevated at 5.7 on discharge -Did not receive supplements -PCP follow up to ensure back to normal limits after discharge Hypermagnesemia -Mag was elevated to 4.5 in setting of magnesium drip for preeclampsia treatment -Resolved on discharge PCP follow up COVID infection Pt tested positive on 03/31 Currently asymptomatic Supportive care as needed Covid precautions/isolation Hypothyroidism On Synthroid, continue GERD Omeprazole, continue status pt is on multiple medications that can affect such as lasix Pt not currently Advised close OB and PCP followup after discharge especially if she chooses to breastfeed Discharge Exam General: Alert, oriented. No acute distress Skin: No noted rashes or bruises Psych: Appropriate mood and affect Neuro: No gross deficits while sitting in bed HEENT: NC/AT CV: RRR Resp: Breath sounds clear bilaterally, no increased effort of breathing. Abdomen: Soft, tender in lower abd quadrants near surgical scar Extremities: edema in lower extremities bilaterally. Updated Medication List Medication Instructions Recorded Confirmed Type docosahexaenoic acid 200 mg 1 mg PO DAILY 01/31/22 04/06/23 History capsule ( DHA) loratadine 10 mg tablet (Claritin) 10 mg PO DAILY 01/31/22 04/06/23 History omeprazole 20 mg capsule,delayed 20 mg PO DAILY 01/31/22 04/06/23 History release levothyroxine 50 mcg tablet 50 mcg PO UD 04/06/23 04/06/23 History acetaminophen 325 mg tablet 650 mg (2 x 325 mg) PO Q6H #30 tabs 04/09/23 Rx cephalexin 250 mg capsule 250 mg PO Q6H #8 caps 04/09/23 Rx docusate sodium 100 mg capsule 100 mg PO BID #60 caps 04/09/23 Rx furosemide 20 mg tablet 20 mg PO QAM #30 tabs 04/09/23 Rx labetalol 200 mg tablet 200 mg PO BID #60 tabs 04/09/23 Rx oxycodone 5 mg tablet 5 mg PO Q6H PRN pain #20 tabs 04/09/23 Rx potassium chloride 10 mEq 10 meq PO DAILY #30 tabs 04/09/23 Rx tablet,extended release(part/cryst) Hospital Stay Data Consultations 04/06/23 19:26 ED Decision to Admit Stat 04/07/23 08:00 Consult Cardiology Routine Consult Obstetrics Routine Diagnostic Imagining Performed 04/06/23 15:01 CT for pulmonary embolism PE [CT angio chest PE protocol] Stat 04/06/23 23:10 US liver Routine US venous doppler LE Urgent Chest X-Ray 04/06/23 14:53 XR chest 1V portable CLINICAL HISTORY: Chest pain. COMPARISON STUDY: No previous studies for comparison. FINDINGS: Lung volumes are normal. Lungs are clear. There is no pneumothorax or pleural effusion. Cardiac size is normal. Mediastinal contours are normal. There is no evidence for pulmonary edema. IMPRESSION: No acute cardiopulmonary findings. ACT 112: Negative or not required by law. Electronically signed by: Loyd Machado M.D. 04/06/2023 3:28 PM Chest CTA 04/06/23 15:01 CT ANGIOGRAPHY OF THE CHEST, PULMONARY EMBOLUS PROTOCOL CLINICAL HISTORY: Shortness of breath. Chest pain. Recent delivery. Evaluate for pulmonary embolus. COMPARISON STUDY: Chest radiograph performed earlier today. TECHNIQUE: Following IV administration of 118 mL of Optiray, helical axial images of the chest were obtained utilizing the pulmonary embolus protocol. Maximal intensity projections and sagittal and coronal reformats were viewed on an independent 3D workstation. IV contrast was administered without complication. Automated exposure control was utilized for the study. A dose lowering technique was utilized adhering to the principles of ALARA. CT DOSE: 883.88 mGy.cm FINDINGS: No pulmonary emboli are identified although the segmental and subsegmental pulmonary arteries are suboptimally assessed due to suboptimal opacification. There is no thoracic aortic dissection. Size of the heart is normal. No pericardial effusion. There is no pneumothorax. Trace bilateral pleural effusions are present. Subpleural opacities represent atelectasis. There is no consolidation to suggest pneumonia. No acute fractures within the bony thorax are noted. There is no thoracic lymphadenopathy. Borderline splenomegaly is present. IMPRESSION: 1. No pulmonary emboli identified although segmental and subsegmental pulmonary arteries suboptimally assessed due to suboptimal opacification. 2. Trace bilateral pleural effusions. Subpleural opacities consistent with atelectasis. No consolidation to suggest pneumonia. ACT 112: Negative or not required by law. Electronically signed by: Loyd Machado M.D. 04/06/2023 4:33 PM Liver Ultrasound 04/06/23 23:10 ABDOMINAL ULTRASOUND, RIGHT UPPER QUADRANT HISTORY: Right upper quadrant pain.. COMPARISON: None. FINDINGS: Pancreas: The pancreas demonstrates a normal echotexture. Liver: 20 cm in length. No hepatic masses. Gallbladder: The gallbladder is surgically absent. CBD: 4 mm. Right kidney: No hydronephrosis. IMPRESSION: 1. Prior cholecystectomy. 2. Mild hepatomegaly. ACT 112: Negative or not required by law. Electronically signed by: Danis Limon M.D. 04/07/2023 7:41 AM Venous Doppler Study 04/06/23 23:10 Exam(s): US VENOUS BILATERAL LOWER EXTREMITIES EXAM: US Duplex Bilateral Lower Extremities Veins CLINICAL HISTORY: Reason for exam: b/l lower ext edema. dvt?. TECHNIQUE: Real-time duplex ultrasound scan of the bilateral lower extremity veins integrating B-mode two-dimensional vascular structure, Doppler spectral analysis, color flow Doppler imaging and compression. COMPARISON: None FINDINGS: Right deep veins: Unremarkable. No DVT in the right common femoral, femoral, proximal deep femoral or popliteal veins. The veins demonstrate normal color flow, are normally compressible, with normal phasic flow and/or augmentation response. Right superficial veins: Unremarkable. No thrombus in the visualized right great saphenous vein. Left deep veins: Unremarkable. No DVT in the left common femoral, femoral, proximal deep femoral or popliteal veins. The veins demonstrate normal color flow, are normally compressible, with normal phasic flow and/or augmentation response. Left superficial veins: Unremarkable. No thrombus in the visualized left great saphenous vein. Soft tissues: Soft tissue edema. No popliteal cyst. IMPRESSION: No deep venous thrombosis identified in either lower extremity. Electronically signed by: Chriss Muñoz M.D. 04/07/23 01:57 AM Discharge Instructions Given to Patient (Per Discharging Provider) Ms. Holder, You were admitted with severe pre-eclampsia. You were seen by both obstetrics and cardiology. Your blood pressure was very high and we treated you with IV labetalol. Cardiology is recommending that you continue taking the oral labetalol 200mg twice a day at home. Your legs were also very swollen. We treated you with IV furosemide and we are discharging you with the oral version, 20mg daily per the recommendations of cardiology. They would like you to weigh yourself in the morning after you pee. The furosemide can also make your potassium low so we are discharging you with potassium supplements as well. You were also anemic with recent blood loss and low iron. Please continue taking your multivitamin at home to help with that. For your pain, we recommend that you stop using your home ibuprofen for now as it can make you bleed, and your blood counts have been on the lower side. We are discharging you home with as needed oxycodone to help and Tylenol. A presc ription for Tylenol was sent as well but it is ok to get that over the counter. There was some concern for a UTI. We treated you with 3 days of an IV antibiotic called Rocephin and we are discharging you home with 2 more days of an oral version called Keflex. You were also constipated while here. Though you did eventually have a bowel movement, we are recommending that you continue with the prescribed stool softener docusate to help especially when using the medication oxycodone to help with pain. At this time, you indicated that you are not and you are bottle feeding. Please follow up with your hide and skin colerer given the medications you are taking, before starting to breastfeed if you choose to do so. Please keep close followup with cardiology, your hide and skin colerer and primary care provider after discharge. Congratulations again and it was truly a pleasure taking care of you while you were here. Total Time Total Time Spent Total Time Spent (In Minutes): > 30 minutes
[2023-04-10] MEDS ORDERED: POTASSIUM CHLORIDE 10 MEQ TABCR PO SCH (09:00)
[2023-04-10] MEDS ORDERED: FUROSEMIDE 20 MG TAB PO SCH (09:00)
== END 2023-04-09 15:05 | disposition home or self-care (01) | DRG 776 ==
LOC: ED 14:33 → 4W 20:54 → SUATTDRO 20:54 → 4W 22:36